=== PATIENT | female | born 1970 | race Hispanic/Latino ===

== ENCOUNTER 2021-04-15 17:28 | Emergency (ER) | payer MEDICAID ==
[2021-04-15 18:13] VITALS: BP 180/118
[2021-04-15] MEDS ORDERED: IPRATROPIUM 0.02% NEBU 2.5 ML IH ONE (18:31)
[2021-04-15] MEDS ORDERED: ACETAMINOPHEN W/CODEINE 300-30 MG TAB PO ONE (18:31)
[2021-04-15] MEDS ORDERED: dexAMETHasone 20 MG/5 ML VIAL IM ONE (18:31)
[2021-04-15] MEDS ORDERED: ALBUTEROL 2.5 MG/3 ML NEBU IH ONE (18:31)
--- NOTE | 2021-04-15 18:34 | Event Note ---
ED Screening Note ED Screening Note: Patient presents emergency room with complaints of hemorrhoids which are causing her some rectal pain Also presents for shortness of breath, wheezing, cough History of COPD and smokes a pack per day She has never been on home oxygen Oxygen saturation 86% on room air, patient placed on 3 L Charge nurse Mone notified that patient needs room [place] Patient has wheezing throughout and form air movement No respiratory distress or accessory muscle use No tripoding or stridor This initial assessment/diagnostic orders/clinical plan/treatment(s) is/are subject to change based on patients health status, clinical progression and re- assessment by fellow clinical providers in the ED. Further treatment and workup at subsequent clinical providers discretion. Patient/guardian urged not to elope from the ED as their condition may be serious if not clinically assessed and managed. Initial orders include: Labs, x-ray, meds Main ED for hypoxia with COPD
[2021-04-15] MEDS ORDERED: methylPREDNISolone Sod Succinate 125 MG/2 ML INJ IV ONE (18:45)
[2021-04-15] MEDS ORDERED: dexAMETHasone 4 MG/ML VIAL IV ONE (18:45)
--- NOTE | 2021-04-15 18:56 | XRay Report ---
XR chest routine 2V INDICATION / CLINICAL INFORMATION: sob, wheezing, cough. COMPARISON: None available. FINDINGS: SUPPORT DEVICES: None. HEART /PULMONARY VASCULATURE: Median sternotomy changes with cardiac valve prosthesis and mild cardio megaly. Pulmonary vasculature is not significantly congested. LUNGS / PLEURA: No focal airspace consolidation. No sizable pleural effusion. No pneumothorax. ADDITIONAL FINDINGS: No significant additional findings. IMPRESSION: No acute cardiopulmonary disease. Signer Name: Sunny Cain MD Signed: 04/15/2021 6:51 PM Workstation Name: [id number]
[2021-04-15] MEDS ORDERED: HYDROCORTISONE 25 MG RECTAL SUPP PR ONE (19:00)
[2021-04-15 19:54] LABS: Eosinophils % (Auto) 0.1 % (0.0-4.3); Hematocrit 42.1 % (30.3-42.9); Hemoglobin 13.3 gm/dl (10.1-14.3); Mean Corpuscular HGB Conc 32 % (30-34); Mean Corpuscular Volume 77 fl (79-97); Monocytes # (Auto) 0.6 K/mm3 (0.0-0.8); Monocytes % (Auto) 6.9 % (0.0-7.3); Platelet Count 206 K/mm3 (140-440); Red Blood Count 5.47 M/mm3 (3.65-5.03); Red Cell Distribution Width 17.2 % (13.2-15.2)
[2021-04-15 19:59] LABS: INR 0.79 (0.87-1.13)
[2021-04-15 20:02] LABS: Basophils % (Auto) 0.2 % (0.0-1.8); Lymphocytes # (Auto) 0.8 K/mm3 (1.2-5.4); Lymphocytes % (Auto) 9.5 % (13.4-35.0)
[2021-04-15 20:10] LABS: Albumin 4.2 g/dL (3.9-5); Calcium 8.8 mg/dL (8.4-10.2)
--- NOTE | 2021-04-15 21:20 | Emergency Department Report ---
HPI - General Chief Complaint: Rectal Pain Time Seen by Provider: 04/15/21 18:21 - HPI HPI: This is a 50-year-old female presents to the emergency department with the initial complaint of rectal pain and a history of hemorrhoids. Through triage the patient was found to have a room air oxygen saturation of 86%. She does have a history of COPD but is not oxygen dependent at home. She smokes 1.5 packs/day. The patient does admit to some recent shortness of breath, wheezing, coughing. She denies any fever, chest pain, lower extremity swelling, nausea, vomiting or diaphoresis. She is vaccinated for COVID-19. No recent travel or sick contacts at home. ED Past Medical Hx - Past Medical History Hx Heart Attack/AMI: Yes Hx COPD: Yes - Surgical History Hx Open Heart Surgery: Yes - Medications Home Medications: Home Medications Medication Instructions Recorded Confirmed Last Taken Type ALBUTEROL NEB's [Proventil 0.083% 2.5 mg IH TID PRN #1 box 04/15/21 Unknown Rx NEBS] Albuterol Mdi (or & Nicu Only) 2 puff IH QID PRN #8.5 gram 04/15/21 Unknown Rx [ProAir HFA Inhaler] predniSONE [Deltasone] 20 mg PO QDAY #5 tab 04/15/21 Unknown Rx ED Review of Systems ROS: Stated complaint: abdomianl pain Other details as noted in HPI Comment: All other systems reviewed and negative Constitutional: denies: chills, fever Eyes: denies: eye pain, vision change ENT: denies: ear pain, throat pain Respiratory: cough, shortness of breath, wheezing Cardiovascular: denies: chest pain, edema Gastrointestinal: other (rectal pain). denies: abdominal pain, vomiting Genitourinary: denies: dysuria, discharge Musculoskeletal: denies: back pain, arthralgia Skin: denies: rash, lesions Physical Exam - Physical Exam Vital Signs: Vital Signs 04/15/21 04/15/21 18:10 19:57 Temperature 98.5 F Pulse Rate 92 H Pulse Rate [ 100 H Bilateral] Respiratory 24 Rate Respiratory 18 Rate [Bilateral ] Blood Pressure 180/118 [Right] O2 Sat by Pulse 86 Oximetry Physical Exam: GENERAL: The patient is well-developed well-nourished. HENT: Normocephalic. Atraumatic. Patient has moist mucous membranes. EYES: Extraocular motions are intact. NECK: Supple. Trachea is midline. CHEST/LUNGS: Mild to moderate wheezing throughout the chest. Mild tachypnea but no accessory muscle use. HEART/CARDIOVASCULAR: Regular. There is no tachycardia. There is no murmur. ABDOMEN: Abdomen is soft, nontender. Patient has normal bowel sounds. SKIN: Skin is warm and dry. NEURO: The patient is awake, alert, and oriented. The patient is cooperative. Normal speech. MUSCULOSKELETAL: There is no tenderness or deformity. There is no limitation range of motion. RECTAL: Deferred ED Course Vital Signs 04/15/21 04/15/21 18:10 19:57 Temperature 98.5 F Pulse Rate 92 H Pulse Rate [ 100 H Bilateral] Respiratory 24 Rate Respiratory 18 Rate [Bilateral ] Blood Pressure 180/118 [Right] O2 Sat by Pulse 86 Oximetry ED Medical Decision Making - Lab Data Result diagrams: 04/15/21 19:07 04/15/21 19:07 Lab Results 04/15/21 04/15/21 04/15/21 Range/Units 19:07 19:07 19:07 WBC 8.7 (4.5-11.0) K/mm3 RBC 5.47 H (3.65-5.03) M/mm3 Hgb 13.3 (10.1-14.3) gm/dl Hct 42.1 (30.3-42.9) % MCV 77 L (79-97) fl MCH 24 L (28-32) pg MCHC 32 (30-34) % RDW 17.2 H (13.2-15.2) % Plt Count 206 (140-440) K/mm3 Lymph % (Auto) 9.5 L (13.4-35.0) % [place] % (Auto) 6.9 (0.0-7.3) % Eos % (Auto) 0.1 (0.0-4.3) % Baso % (Auto) 0.2 (0.0-1.8) % Lymph # (Auto) 0.8 L (1.2-5.4) K/mm3 [place] # (Auto) 0.6 (0.0-0.8) K/mm3 Eos # (Auto) 0.0 (0.0-0.4) K/mm3 Baso # (Auto) 0.0 (0.0-0.1) K/mm3 Seg Neutrophils % 83.3 H (40.0-70.0) % Seg Neutrophils # 7.3 (1.8-7.7) K/mm3 PT (12.2-14.9) Sec. INR (0.87-1.13) Sodium 129 L (137-145) mmol/L Potassium 4.2 (3.6-5.0) mmol/L Chloride 91.2 L (98-107) mmol/L Carbon Dioxide 26 (22-30) mmol/L Anion Gap 16 mmol/L BUN 13 (7-17) mg/dL Creatinine 1.1 (0.6-1.2) mg/dL Estimated GFR 53 ml/min BUN/Creatinine Ratio 12 % Glucose 142 H (65-100) mg/dL Calcium 8.8 (8.4-10.2) mg/dL Total Bilirubin 0.60 (0.1-1.2) mg/dL AST 17 (5-40) units/L ALT 10 (7-56) units/L Alkaline Phosphatase 95 (35-129) units/L Troponin T < 0.010 (0.00-0.029) ng/mL NT-Pro-B Natriuret Pep (0-450) pg/mL Total Protein 7.2 (6.3-8.2) g/dL Albumin 4.2 (3.9-5) g/dL Albumin/Globulin Ratio 1.4 % 04/15/21 04/15/21 Range/Units 19:07 19:07 WBC (4.5-11.0) K/mm3 RBC (3.65-5.03) M/mm3 Hgb (10.1-14.3) gm/dl Hct (30.3-42.9) % MCV (79-97) fl MCH (28-32) pg MCHC (30-34) % RDW (13.2-15.2) % Plt Count (140-440) K/mm3 Lymph % (Auto) (13.4-35.0) % [place] % (Auto) (0.0-7.3) % Eos % (Auto) (0.0-4.3) % Baso % (Auto) (0.0-1.8) % Lymph # (Auto) (1.2-5.4) K/mm3 [place] # (Auto) (0.0-0.8) K/mm3 Eos # (Auto) (0.0-0.4) K/mm3 Baso # (Auto) (0.0-0.1) K/mm3 Seg Neutrophils % (40.0-70.0) % Seg Neutrophils # (1.8-7.7) K/mm3 PT 11.9 L (12.2-14.9) Sec. INR 0.79 L (0.87-1.13) Sodium (137-145) mmol/L Potassium (3.6-5.0) mmol/L Chloride (98-107) mmol/L Carbon Dioxide (22-30) mmol/L Anion Gap mmol/L BUN (7-17) mg/dL Creatinine (0.6-1.2) mg/dL Estimated GFR ml/min BUN/Creatinine Ratio % Glucose (65-100) mg/dL Calcium (8.4-10.2) mg/dL Total Bilirubin (0.1-1.2) mg/dL AST (5-40) units/L ALT (7-56) units/L Alkaline Phosphatase (35-129) units/L Troponin T (0.00-0.029) ng/mL NT-Pro-B Natriuret Pep 936.5 H (0-450) pg/mL Total Protein (6.3-8.2) g/dL Albumin (3.9-5) g/dL Albumin/Globulin Ratio % - Radiology Data Radiology results: image reviewed interpreted by me: Chest x-ray does not show any acute process. There are no pleural effusions, obvious pneumonia and there is no pneumothorax. No widened mediastinum. - Medical Decision Making This patient presents to the emergency department originally with a complaint of rectal/hemorrhoid pain. However, upon triage, the patient was found to have a room air oxygen saturation of 86%. Patient does have a history of COPD but is not oxygen dependent at home. She continues to smoke about 1.5 packs/day. At this point the patient did admit that she has been having some recent shortness of breath, wheezing, coughing. She has been using her home albuterol nebulizer treatment without any relief. Chest x-ray does not show any pneumonia, pleural effusions, pneumothorax, widened mediastinum, or any other acute process. Labs have been mostly unremarkable including CBC, metabolic panel, negative troponin. The patient does have some hyponatremia with a sodium level of 129 and has an elevated proBNP of about 1000, but no evidence of volume overload. I explained to the patient that she will need to be admitted to the hospital for further evaluation and treatment as she is not oxygen dependent at home but is requiring oxygen to keep her oxygen saturation up in the 90s. However the patient is refusing admission at this time. I explained to the patient that leaving AGAINST MEDICAL ADVICE at this time could lead to increased shortness of breath, worsening hypoxia and subsequent respiratory distress, ME, CVA, coma or even . The patient is awake, alert, oriented, AAO x3, and has a normal decision-making capacity and despite understanding the risks has decided to leave AGAINST MEDICAL ADVICE. She understands that she can return to the emergency department if she changes her mind about admission or further evaluation, or with any acute distress. Critical Care Time: No Critical care attestation.: If time is entered above; I have spent that time in minutes in the direct care of this critically ill patient, excluding procedure time. ED Disposition Clinical Impression: Hypoxia, Rectal pain, Hyponatremia COPD (chronic obstructive pulmonary disease) Qualifiers: COPD type: unspecified COPD Qualified Code(s): J44.9 - Chronic obstructive pulmonary disease, unspecified Disposition: 07 LEFT AGAINST MEDICAL ADVICE Is pt being admited?: No Condition: Stable Instructions: Chronic Obstructive Pulmonary Disease (ED) Additional Instructions: Please return to the emergency department if you change your mind about further evaluation and treatment of your low oxygen saturation, suspected COPD exacerbation, and your rectal pain/hemorrhoids. Follow-up with a primary care physician in the next few days. Take all medications as previously prescribed. Try to stay away from foods that are high in salt and caffeinated products. Keep a blood pressure log. Prescriptions: predniSONE [Deltasone] 20 mg PO QDAY #5 tab Albuterol Mdi (or & Nicu Only) [ProAir HFA Inhaler] 2 puff IH QID PRN #8.5 gram PRN Reason: Shortness Of Breath ALBUTEROL NEB's [Proventil 0.083% NEBS] 2.5 mg IH TID PRN #1 box PRN Reason: Wheezing Referrals: PRIMARY CARE, [Primary Care Provider] - 2-3 Days Forms: AMA Form Time of Disposition: 22:27
== END 2021-04-15 21:33 | disposition left against medical advice (07) ==
LOC: ED 17:28
DX: R09.02 Hypoxemia (principal); J44.9 Chronic obstructive pulmonary disease, unspecified; K62.89 Other specified diseases of anus and rectum; E87.1 Hypo-osmolality and hyponatremia
CPT/HCPCS: 36415; 71046; 80053; 83880; 84484; 85025; 85610; 94644; 96374; 99284; J2930

== ENCOUNTER 2021-06-26 16:39 | Emergency (ER) | payer MEDICAID ==
[2021-06-26] MEDS ORDERED: IPRATROPIUM/ALBUTEROL SULFATE 3 ML AMPUL.NEB IH ONE (20:08)
[2021-06-26] MEDS ORDERED: methylPREDNISolone Sod Succinate 125 MG/2 ML INJ IM ONE (20:08)
[2021-06-26] MEDS ORDERED: cloNIDine 0.1 MG TAB PO ONE (20:09)
--- NOTE | 2021-06-26 20:35 | XRay Report ---
Chest 2 views INDICATION: Dyspnea IMPRESSION: Cardiomegaly with small left pleural effusion. Evidence of cardiac valvuloplasty. Mild in creased pulmonary vascularity suggestive of underlying cardiac congestion. Signer Name: Lokesh Baron MD Signed: 06/26/2021 8:30 PM Workstation Name: [id number]
--- NOTE | 2021-06-26 20:59 | Event Note ---
ED Screening Note Date of service: 06/26/21 Time: 20:58 ED Screening Note: Few day history of worsening shortness of breath despite use of inhalers. She states that it feels like she has a tight band around her chest and has been unable to wear her bra. She states that over the last 2 days she also felt like her throat was swollen and closing up. This initial assessment/diagnostic orders/clinical plan/treatment(s) is/are subject to change based on patients health status, clinical progression and re- assessment by fellow clinical providers in the ED. Further treatment and workup at subsequent clinical providers discretion. Patient/guardian urged not to elope from the ED as their condition may be serious if not clinically assessed and managed. Initial orders include:
[2021-06-26 21:32] LABS: Hematocrit 38.4 % (30.3-42.9); Hemoglobin 12.7 gm/dl (10.1-14.3); Mean Corpuscular HGB Conc 33 % (30-34); Mean Corpuscular Volume 77 fl (79-97); Platelet Count 193 K/mm3 (140-440); Red Blood Count 5.02 M/mm3 (3.65-5.03); Red Cell Distribution Width 17.8 % (13.2-15.2)
[2021-06-26 21:55] LABS: Alanine Aminotransferase 16 units/L (7-56); Albumin 3.8 g/dL (3.9-5); BUN/Creatinine Ratio 18; Blood Urea Nitrogen 16 mg/dL (7-17); Hemolysis Index 17
[2021-06-26] MEDS ORDERED: FUROSEMIDE 40 MG/4 ML INJ IV ONE (22:34)
--- NOTE | 2021-06-26 22:40 | Emergency Department Report ---
ED Shortness of Breath HPI - General Chief Complaint: Dyspnea/Respdistress Stated Complaint: DIFFICULTY BREATHING Time Seen by Provider: 06/26/21 19:45 Source: patient Mode of arrival: Ambulatory Limitations: No Limitations - History of Present Illness Initial Comments: Patient is 50 years old female with history of COPD, hypertension questionable history of CHF. Patient presented to the ER complaining of shortness of breath difficulty breathing for the last few days. Patient described orthopnea and paroxysmal nocturnal dyspnea. She denies any chest pain. She also denied any fever or chills recently. Patient stated that she is compliant with her medication. Patient found to have a blood pressure of 199/136. MD Complaint: shortness of breath - Related Data Previous Rx's Medication Instructions Recorded Last Taken Type ALBUTEROL NEB's [Proventil 0.083% 2.5 mg IH TID PRN #1 box 04/15/21 Unknown Rx NEBS] Albuterol Mdi (or & Nicu Only) 2 puff IH QID PRN #8.5 gram 04/15/21 Unknown Rx [ProAir HFA Inhaler] predniSONE [Deltasone] 20 mg PO QDAY #5 tab 04/15/21 Unknown Rx Allergies Allergy/AdvReac Type Severity Reaction Status Date / Time No Known Allergies Allergy Unverified 04/15/21 18:06 ED Review of Systems ROS: Stated complaint: DIFFICULTY BREATHING Other details as noted in HPI Comment: All other systems reviewed and negative Constitutional: denies: chills, fever Respiratory: orthopnea, shortness of breath, SOB with exertion, SOB at rest. denies: cough Cardiovascular: dyspnea on exertion, orthopnea, paroxysmal nocturnal dyspnea. denies: chest pain, palpitations Gastrointestinal: denies: abdominal pain, nausea, diarrhea, constipation, hematemesis Musculoskeletal: denies: back pain Neurological: denies: headache, weakness, numbness, paresthesias, confusion, abnormal gait ED Past Medical Hx - Past Medical History Previous Medical History?: Yes Hx Hypertension: Yes Hx Heart Attack/AMI: Yes Hx Psychiatric Treatment: Yes Hx COPD: Yes - Surgical History Hx Open Heart Surgery: Yes - Medications Home Medications: Home Medications Medication Instructions Recorded Confirmed Last Taken Type ALBUTEROL NEB's [Proventil 0.083% 2.5 mg IH TID PRN #1 box 04/15/21 Unknown Rx NEBS] Albuterol Mdi (or & Nicu Only) 2 puff IH QID PRN #8.5 gram 04/15/21 Unknown Rx [ProAir HFA Inhaler] predniSONE [Deltasone] 20 mg PO QDAY #5 tab 04/15/21 Unknown Rx ED Physical Exam - General Limitations: No Limitations General appearance: alert, in distress - Head Head exam: Present: atraumatic, normocephalic, normal inspection - Eye Eye exam: Present: normal appearance - ENT ENT exam: Present: normal exam, normal orophraynx, mucous membranes moist - Neck Neck exam: Present: normal inspection, full ROM. Absent: tenderness, meningismus - Respiratory Respiratory exam: Present: respiratory distress, wheezes, rales, decreased breath sounds - Cardiovascular Cardiovascular Exam: Present: regular rate, normal rhythm, normal heart sounds - GI/Abdominal GI/Abdominal exam: Present: soft, normal bowel sounds. Absent: distended, tenderness, guarding, rebound, rigid, organomegaly, mass, bruit, pulsatile mass, hernia - Extremities Exam Extremities exam: Present: normal inspection, normal capillary refill. Absent: tenderness, calf tenderness - Back Exam Back exam: Present: normal inspection, full ROM. Absent: CVA tenderness (R), CVA tenderness (L) - Neurological Exam Neurological exam: Present: alert, oriented X3, CN II-XII intact, reflexes normal. Absent: motor sensory deficit - Psychiatric Psychiatric exam: Present: normal mood - Skin Skin exam: Present: warm, intact, normal color ED Course Vital Signs 06/26/21 06/26/21 17:30 22:40 Temperature 98.6 F Pulse Rate 104 H 107 H Respiratory 24 18 Rate Blood Pressure 199/136 Blood Pressure 170/100 [Left] O2 Sat by Pulse 97 95 Oximetry ED Medical Decision Making - Lab Data Result diagrams: 06/26/21 21:02 06/26/21 21:02 - Radiology Data Radiology results: report reviewed - Medical Decision Making Patient is 50 years old female with history of COPD, hypertension questionable history of CHF. Patient presented to the ER complaining of shortness of breath difficulty breathing for the last few days. Patient described orthopnea and paroxysmal nocturnal dyspnea. She denies any chest pain. She also denied any fever or chills recently. Patient stated that she is compliant with her medication. Patient found to have a blood pressure of 199/136. Patient received albuterol, Solu-Medrol. Patient also received Lasix. Patient stated that she is feeling much better. Blood pressure improved significantly with Lasix and clonidine. Patient advised to be compliant with her medication. Patient given prescription for prednisone and albuterol and advised to follow- up with her primary doctor in the next 2 to 3 days and to return to the ER she develop any new symptoms. Critical care attestation.: If time is entered above; I have spent that time in minutes in the direct care of this critically ill patient, excluding procedure time. ED Disposition Clinical Impression: COPD exacerbation, CHF exacerbation, Malignant hypertension Disposition: HOME / SELF CARE / HOMELESS Is pt being admited?: No Condition: Stable Instructions: Chronic Obstructive Pulmonary Disease (ED), Chronic Obstructive Pulmonary Disease Exacerbation, [id number], Hypertension (ED), Heart Failure Exacerbation Referrals: LORI MORAN MD [Primary Care Provider] - 3-5 Days
[2021-06-26 22:41] VITALS: BP 170/100
== END 2021-06-27 00:34 | disposition home or self-care (01) ==
LOC: ED 16:39
DX: J44.1 Chronic obstructive pulmonary disease with (acute) exacerbation (principal); I50.9 Heart failure, unspecified; I10 Essential (primary) hypertension
CPT/HCPCS: 36415; 71046; 80053; 83880; 84484; 85027; 94640; 96372; 96374; 99284; J1940; J2930

== ENCOUNTER 2021-07-03 03:37 | Inpatient (IN) | payer MEDICAID ==
[2021-07-03] MEDS ORDERED: ALBUTEROL 2.5 MG/3 ML NEBU IH ONE (03:47)
[2021-07-03] MEDS ORDERED: IPRATROPIUM 0.02% NEBU 2.5 ML IH ONE (03:47)
[2021-07-03] MEDS ORDERED: FUROSEMIDE 40 MG/4 ML INJ IV ONE (03:48)
[2021-07-03 03:53] LABS: ABG Base Excess 3.5 mmol/L (-2.0-3.0); ABG HCO3 29.4 mmol/L (20.0-26.0); ABG Methemoglobin 0.5 % (0.0-1.5); ABG Oxygen Saturation 98.8 % (95.0-99.0); ABG PCO2 49.7 mm Hg; ABG PH 7.389 pH Units (7.350-7.450); ABG PO2 150.5 mm Hg (80.0-90.0)
[2021-07-03] MEDS: NITROGLYCERIN DRIP 50 MG/250 ML BOTTLE IV SCH ×4 (04:05→05:42)
[2021-07-03 04:10] LABS: Basophils % (Auto) 0.4 % (0.0-1.8); Hemoglobin 12.2 gm/dl (10.1-14.3); Lymphocytes # (Auto) 0.9 K/mm3 (1.2-5.4); Lymphocytes % (Auto) 6.7 % (13.4-35.0); Mean Corpuscular HGB Conc 31 % (30-34); Mean Corpuscular Volume 77 fl (79-97); Monocytes # (Auto) 0.8 K/mm3 (0.0-0.8); Monocytes % (Auto) 5.8 % (0.0-7.3); Platelet Count 197 K/mm3 (140-440); Red Blood Count 5.09 M/mm3 (3.65-5.03); Red Cell Distribution Width 17.4 % (13.2-15.2)
[2021-07-03 04:19] LABS: INR 0.81 (0.87-1.13)
[2021-07-03 04:25] LABS: Creatine Kinase MB 5.4 ng/mL (0.0-4.0)
[2021-07-03 04:26] LABS: Albumin 3.6 g/dL (3.9-5); Calcium 8.6 mg/dL (8.4-10.2)
[2021-07-03] MEDS ORDERED: ALBUTEROL 2.5 MG/3 ML NEBU IH PRN (05:45)
[2021-07-03] MEDS ORDERED: MORPHINE 2 MG/1 ML INJ IV PRN (05:45)
[2021-07-03] MEDS ORDERED: ONDANSETRON 4 MG/2 ML INJ IV PRN (05:45)
[2021-07-03] MEDS ORDERED: HYDROmorphone 1 MG/1 ML INJ IV PRN (05:45)
[2021-07-03] MEDS ORDERED: ACETAMINOPHEN 325 MG TAB PO PRN (05:45)
--- NOTE | 2021-07-03 05:48 | Emergency Department Report ---
ED Shortness of Breath HPI - General Chief Complaint: Dyspnea/Respdistress Stated Complaint: MARLEY Time Seen by Provider: 07/03/21 03:48 Source: EMS Mode of arrival: Stretcher Limitations: No Limitations - History of Present Illness Initial Comments: 50 years old with history of CHF and COPD and psych history, brought in by EMS for SOB , was found to be SOB and o2 sat of 80s , didn;t take her BP meds today because she couldn;t find it , EMS started her on CPAP and give her steriods Complaint: shortness of breath -: days(s) Consistency: intermittent Improves With: nothing Known History Of: COPD, congestive heart failure Associated Symptoms: denies other symptoms Treatments Prior to Arrival: none - Related Data Previous Rx's Medication Instructions Recorded Last Taken Type ALBUTEROL NEB's [Proventil 0.083% 2.5 mg IH TID PRN #1 box 04/15/21 Unknown Rx NEBS] Albuterol Mdi (or & Nicu Only) 2 puff IH QID PRN #8.5 gram 04/15/21 Unknown Rx [ProAir HFA Inhaler] predniSONE [Deltasone] 20 mg PO QDAY #5 tab 04/15/21 Unknown Rx Albuterol Mdi (or & Nicu Only) 2 puff IH QID PRN #1 inhalation 06/27/21 Unknown Rx [ProAir HFA Inhaler] Furosemide [Lasix] 20 mg PO QDAY #7 tablet 06/27/21 Unknown Rx Prednisone [predniSONE 10 mg 10 mg PO .TAPER #1 tab.ds.pk 06/27/21 Unknown Rx (6-Day Pack, 21 Tabs)] Allergies Allergy/AdvReac Type Severity Reaction Status Date / Time No Known Allergies Allergy Unverified 04/15/21 18:06 ED Review of Systems ROS: Stated complaint: MARLEY Other details as noted in HPI Comment: Unobtainable due to pts medical conditions ED Past Medical Hx - Past Medical History Hx Hypertension: Yes Hx Heart Attack/AMI: Yes Hx Psychiatric Treatment: Yes Hx COPD: Yes - Surgical History Hx Open Heart Surgery: Yes - Medications Home Medications: Home Medications Medication Instructions Recorded Confirmed Last Taken Type ALBUTEROL NEB's [Proventil 0.083% 2.5 mg IH TID PRN #1 box 04/15/21 Unknown Rx NEBS] Albuterol Mdi (or & Nicu Only) 2 puff IH QID PRN #8.5 gram 04/15/21 Unknown Rx [ProAir HFA Inhaler] predniSONE [Deltasone] 20 mg PO QDAY #5 tab 04/15/21 Unknown Rx Albuterol Mdi (or & Nicu Only) 2 puff IH QID PRN #1 inhalation 06/27/21 Unknown Rx [ProAir HFA Inhaler] Furosemide [Lasix] 20 mg PO QDAY #7 tablet 06/27/21 Unknown Rx Prednisone [predniSONE 10 mg 10 mg PO .TAPER #1 tab.ds.pk 06/27/21 Unknown Rx (6-Day Pack, 21 Tabs)] ED Physical Exam - General Limitations: No Limitations General appearance: alert, in distress - Head Head exam: Present: atraumatic, normocephalic - Eye Eye exam: Present: normal appearance - ENT ENT exam: Present: mucous membranes moist - Neck Neck exam: Present: normal inspection - Respiratory Respiratory exam: Present: respiratory distress, rales, rhonchi, decreased breath sounds - Cardiovascular Cardiovascular Exam: Present: normal rhythm, tachycardia. Absent: systolic murmur, diastolic murmur, rubs, gallop - GI/Abdominal GI/Abdominal exam: Present: soft, normal bowel sounds - Extremities Exam Extremities exam: Present: normal inspection - Back Exam Back exam: Present: normal inspection - Neurological Exam Neurological exam: Present: alert, oriented X3 - Psychiatric Psychiatric exam: Present: normal affect, normal mood - Skin Skin exam: Present: warm, dry, intact, normal color. Absent: rash ED Course Vital Signs 07/03/21 07/03/21 07/03/21 03:49 03:55 03:59 Temperature 98.7 F Pulse Rate 126 H 125 H Pulse Rate [ 116 H Bilateral Throughout] Respiratory 20 21 Rate Respiratory 21 Rate [Bilateral Throughout] Blood Pressure 181/128 Blood Pressure 181/128 [Right] O2 Sat by Pulse 100 99 Oximetry 07/03/21 07/03/21 04:43 05:42 Temperature Pulse Rate 111 H 113 H Pulse Rate [ Bilateral Throughout] Respiratory 20 18 Rate Respiratory Rate [Bilateral Throughout] Blood Pressure Blood Pressure 151/101 159/99 [Right] O2 Sat by Pulse 95 Oximetry ED Medical Decision Making - Lab Data Result diagrams: 07/03/21 03:54 07/03/21 03:54 - EKG Data -: EKG Interpreted by Me - Radiology Data Radiology results: image reviewed - Medical Decision Making steriods and rt and CPAP given prior to arrival here was started on nitro and bipap and lasix, dramatic imrpovement feels better off bipap and nitro Critical care attestation.: If time is entered above; I have spent that time in minutes in the direct care of this critically ill patient, excluding procedure time. ED Disposition Clinical Impression: COPD exacerbation, CHF exacerbation, SOB (shortness of breath), Hypertensive em ergency Disposition: ADMITTED INPATIENT Is pt being admited?: Yes Does the pt Need Aspirin: No Condition: Fair Instructions: Chronic Obstructive Pulmonary Disease (ED), Hypertension (ED)
--- NOTE | 2021-07-03 05:53 | History and Physical Report ---
History of Present Illness Date of examination: 07/03/21 Date of admission: 07/03/21 Chief complaint: Dyspnea Respiratory distress History of present illness: 50 years old female with history of COPD, hypertension questionable history of CHF was brought to the emergency room because of progressive shortness of breath. Patient O2 sat in the 80s and patient is hypertensive 181/128. Patient did not take the blood pressure medication because he could not find it. subsequently patient is brought to the emergency room and put on BiPAP as well as nitro drip for blood pressure 181/128. Now blood pressure is improved 151/99 and patient feels better. Still going to admit the patient to the medical floor for acute COPD exacerbation and CHF exacerbation. Past History Past Medical History: COPD, heart failure, hypertension Medications and Allergies Allergies Allergy/AdvReac Type Severity Reaction Status Date / Time No Known Allergies Allergy Unverified 04/15/21 18:06 Home Medications Medication Instructions Recorded Confirmed Last Taken Type ALBUTEROL NEB's [Proventil 0.083% 2.5 mg IH TID PRN #1 box 04/15/21 Unknown Rx NEBS] Albuterol Mdi (or & Nicu Only) 2 puff IH QID PRN #8.5 gram 04/15/21 Unknown Rx [ProAir HFA Inhaler] predniSONE [Deltasone] 20 mg PO QDAY #5 tab 04/15/21 Unknown Rx Albuterol Mdi (or & Nicu Only) 2 puff IH QID PRN #1 inhalation 06/27/21 Unknown Rx [ProAir HFA Inhaler] Furosemide [Lasix] 20 mg PO QDAY #7 tablet 06/27/21 Unknown Rx Prednisone [predniSONE 10 mg 10 mg PO .TAPER #1 tab.ds.pk 06/27/21 Unknown Rx (6-Day Pack, 21 Tabs)] Active Meds: Active Medications Nitroglycerin/Dextrose (Tridil Drip 50mg/250ml) 50 mg in 250 mls @ 3 mls/hr IV TITR JUAQUIN; Protocol Last Admin: 07/03/21 05:42 Dose: 10 mcg/min, 3 mls/hr Review of Systems Cardiovascular: orthopnea, edema, shortness of breath, dyspnea on exertion, paroxysmal nocturnal dyspnea Respiratory: shortness of breath, dyspnea on exertion Exam - Constitutional Vitals: Temp Pulse Resp BP Pulse Ox 98.7 F 113 H 18 159/99 95 07/03/21 03:49 07/03/21 05:42 07/03/21 05:42 07/03/21 05:42 07/03/21 05:42 General appearance: Present: no acute distress, well-nourished - EENT Eyes: Present: PERRL ENT: hearing intact, clear oral mucosa - Neck Neck: Present: supple, normal ROM - Respiratory Respiratory effort: normal Respiratory: bilateral: diminished - Cardiovascular Heart Sounds: Present: S1 & S2. Absent: rub, click - Extremities Extremities: pulses symmetrical, No edema Peripheral Pulses: within normal limits - Abdominal General gastrointestinal: Present: soft, non-tender, non-distended, normal bowel sounds Female genitourinary: Present: normal - Integumentary Integumentary: Present: clear, warm, dry - Musculoskeletal Musculoskeletal: gait normal, strength equal bilaterally - Psychiatric Psychiatric: appropriate mood/affect, intact judgment & insight - Neurologic Neurologic: CNII-XII intact, moves all extremities HEART Score - HEART Score Troponin: Troponin T < 0.010 ng/mL (0.00-0.029) 07/03/21 03:54 Results - Labs CBC & Chem 7: 07/03/21 03:54 07/03/21 03:54 Labs: Laboratory Last Values WBC 14.1 K/mm3 (4.5-11.0) H 07/03/21 03:54 RBC 5.09 M/mm3 (3.65-5.03) H 07/03/21 03:54 Hgb 12.2 gm/dl (10.1-14.3) 07/03/21 03:54 Hct 39.0 % (30.3-42.9) 07/03/21 03:54 MCV 77 fl (79-97) L 07/03/21 03:54 MCH 24 pg (28-32) L 07/03/21 03:54 MCHC 31 % (30-34) 07/03/21 03:54 RDW 17.4 % (13.2-15.2) H 07/03/21 03:54 Plt Count 197 K/mm3 (140-440) 07/03/21 03:54 Lymph % (Auto) 6.7 % (13.4-35.0) L 07/03/21 03:54 Major % (Auto) 5.8 % (0.0-7.3) 07/03/21 03:54 Eos % (Auto) 0.0 % (0.0-4.3) 07/03/21 03:54 Baso % (Auto) 0.4 % (0.0-1.8) 07/03/21 03:54 Lymph # (Auto) 0.9 K/mm3 (1.2-5.4) L 07/03/21 03:54 Major # (Auto) 0.8 K/mm3 (0.0-0.8) 07/03/21 03:54 Eos # (Auto) 0.0 K/mm3 (0.0-0.4) 07/03/21 03:54 Baso # (Auto) 0.0 K/mm3 (0.0-0.1) 07/03/21 03:54 Seg Neutrophils % 87.1 % (40.0-70.0) H 07/03/21 03:54 Seg Neutrophils # 12.3 K/mm3 (1.8-7.7) H 07/03/21 03:54 PT 12.0 Sec. (12.2-14.9) L 07/03/21 03:54 INR 0.81 (0.87-1.13) L 07/03/21 03:54 ABG pH 7.389 pH Units (7.350-7.450) 07/03/21 03:42 ABG pCO2 49.7 mm Hg 07/03/21 03:42 ABG pO2 150.5 mm Hg (80.0-90.0) H 07/03/21 03:42 ABG HCO3 29.4 mmol/L (20.0-26.0) H 07/03/21 03:42 ABG O2 Saturation 98.8 % (95.0-99.0) 07/03/21 03:42 ABG O2 Content 17.5 (0.0-44) 07/03/21 03:42 ABG Base Excess 3.5 mmol/L (-2.0-3.0) H 07/03/21 03:42 ABG Hemoglobin 12.8 gm/dl (12.0-16.0) 07/03/21 03:42 ABG Carboxyhemoglobin 3.0 % (0.0-5.0) 07/03/21 03:42 ABG Methemoglobin 0.5 % (0.0-1.5) 07/03/21 03:42 Oxyhemoglobin 95.3 % (95.0-99.0) 07/03/21 03:42 FiO2 35 % 07/03/21 03:42 Sodium 138 mmol/L (137-145) 07/03/21 03:54 Potassium 4.9 mmol/L (3.6-5.0) 07/03/21 03:54 Chloride 99.5 mmol/L (98-107) 07/03/21 03:54 Carbon Dioxide 31 mmol/L (22-30) H 07/03/21 03:54 Anion Gap 12 mmol/L 07/03/21 03:54 BUN 21 mg/dL (7-17) H 07/03/21 03:54 Creatinine 1.2 mg/dL (0.6-1.2) 07/03/21 03:54 Estimated GFR 48 ml/min 07/03/21 03:54 BUN/Creatinine Ratio 18 % 07/03/21 03:54 Glucose 145 mg/dL (65-100) H 07/03/21 03:54 Lactic Acid 1.60 mmol/L (0.7-2.0) 07/03/21 03:54 Calcium 8.6 mg/dL (8.4-10.2) 07/03/21 03:54 Magnesium 1.90 mg/dL (1.7-2.3) 07/03/21 03:54 Total Bilirubin 0.50 mg/dL (0.1-1.2) 07/03/21 03:54 AST 14 units/L (5-40) 07/03/21 03:54 ALT 16 units/L (7-56) 07/03/21 03:54 Alkaline Phosphatase 83 units/L (35-129) 07/03/21 03:54 Total Creatine Kinase 68 units/L (30-135) 07/03/21 03:54 CK-MB (CK-2) 5.4 ng/mL (0.0-4.0) H 07/03/21 03:54 CK-MB (CK-2) Rel Index 7.9 (0-4) H 07/03/21 03:54 Troponin T < 0.010 ng/mL (0.00-0.029) 07/03/21 03:54 Total Protein 6.8 g/dL (6.3-8.2) 07/03/21 03:54 Albumin 3.6 g/dL (3.9-5) L 07/03/21 03:54 Albumin/Globulin Ratio 1.1 % 07/03/21 03:54 Lipase 25 units/L (13-60) 07/03/21 03:54 - Imaging and Cardiology Chest x-ray: pending Assessment and Plan VTE prophylaxis?: Chemical Plan of care discussed with patient/family: Yes - Patient Problems (1) Acute exacerbation of chronic obstructive pulmonary disease (COPD) Status: Acute Plan to address problem: Admit the patient to the medical floor. Oxygen via nasal cannula 3 L/min. DuoNeb by nebulizer every 4 hours. Albuterol via nebulizer every 4 hours as needed. Solu-Medrol 40 mg IV every 12 hours. Zithromax to 50 mg p.o. daily. Consult pulmonary if needed (2) CHF exacerbation Status: Acute Plan to address problem: Fluid restriction. Maintain input output. Daily weight. Lasix 40 mg IV every 12 hours. Echocardiogram. Consult cardiology if needed (3) Hypertensive emergency Status: Acute Plan to address problem: Patient was on nitro drip. We put the patient on hydralazine 10 mg IV every 6 hours as needed. We continue the home medication (4) Tobacco abuse Status: Acute Plan to address problem: Patient counseled regarding quitting smoking. We will put the patient on nicotine patch if needed (5) Malignant hypertension Status: Acute Plan to address problem: Patient was on nitro drip. We put the patient on hydralazine 10 mg IV every 6 hours as needed. We continue the home medication (6) SOB (shortness of breath) Status: Acute Plan to address problem: Oxygen via nasal cannula 3 L/min. DuoNeb by nebulizer every 4 hours. Albuterol via nebulizer every 4 hours as needed. Solu-Medrol 40 mg IV every 12 hours. Zithromax to 50 mg p.o. daily. Consult pulmonary if needed (7) DVT prophylaxis Status: Acute Plan to address problem: Heparin 5000 units subcu every 12 hrs for DVT prophylaxis. Pepcid 20 mg p.o. twice daily for GI prophylaxis. Patient is a full code
--- NOTE | 2021-07-03 05:59 | XRay Report ---
CHEST 1 VIEW 07/03/2021 5:20 AM INDICATION / CLINICAL INFORMATION: Dyspnea. COMPARISON: 06/26/2021. FINDINGS: SUPPORT DEVICES: None. HEART / MEDIASTINUM: Stable. LUNGS / PLEURA: No significant pulmonary or pleural abnormality. Mild pleural fluid versus thickening again seen left base. No new infiltrate. ADDITIONAL FINDINGS: No significant additional findings. IMPRESSION: Persistent pleural fluid versus thickening left base. Signer Name: Devin Lundy MD Signed: 07/03/2021 5:55 AM Workstation Name: [id number]
[2021-07-03] MEDS ORDERED: FUROSEMIDE 40 MG/4 ML INJ IV SCH (06:00)
[2021-07-03 06:04] LABS: Bacteria,Urine 1+ /HPF (Negative); Bilirubin,Urine NEG (Negative); Blood,Urine NEG (Negative); Color,Urine Colorless (Yellow); RBC,Urine < 1.0 /HPF (0.0-6.0); Urobilinogen,Urine < 2.0 mg/dL (<2.0); WBC,Urine < 1.0 /HPF (0.0-6.0)
[2021-07-03 06:11] LABS: Amphetamine Screen,Urine Negative; Benzodiazepines Screen,Urine Negative; Cannabinoid Screen,Urine Negative; Cocaine Screen,Urine Negative; Methadone Screen,Urine Negative; Opiate Screen,Urine Negative
--- NOTE | 2021-07-03 08:58 | Progress Note ---
Assessment and Plan Assessment and plan: History of present illness: 50 years old female with history of COPD, hypertension questionable history of CHF was brought to the emergency room because of progressive shortness of breath. Patient O2 sat in the 80s and patient is hypertensive 181/128. Patient did not take the blood pressure medication because he could not find it. subsequently patient is brought to the emergency room and put on BiPAP as well as nitro drip for blood pressure 181/128. Now blood pressure is improved 151/99 and patient feels better. Still going to admit the patient to the medical floor for acute COPD exacerbation and CHF exacerbation. Hospital course 07/03 Assessment and plan #Acute hypoxic respiratory failure #Acute exacerbation of COPD #Congestive heart failure exacerbation #Hypertensive emergency # Nicotine Abuse. - behavioral health counseling administered which included education on benefits of smoking cessation as well as options for quitting. +15 min. #Malignant hypertension #Advance care planning Disease education conducted, care plan discussed, diagnoses discussed, prognosis discussed, patient is full code, patient acknowledges understanding and agree with care plan, +30 minutes. Hospitalist Physical - Physical exam Narrative exam: Physical Exam: VITAL SIGNS: Reviewed. GENERAL: The patient appears normally developed, Vital signs as documented. HEAD: No signs of head trauma. EYES: Pupils are equal. Extraocular motions intact. EARS: Hearing grossly intact. MOUTH: Oropharynx is normal. NECK: No adenopathy, no JVD. CHEST: Chest with clear breath sounds bilaterally. No wheezes, rales, or rhonchi. CARDIAC: Regular rate and rhythm. S1 and S2, without murmurs, gallops, or rubs. VASCULAR: No Edema. Peripheral pulses normal and equal in all extremities. ABDOMEN: Soft, non tender and non distended. No rebound or guarding, and no masses palpated. Bowel Sounds normal. MUSCULOSKELETAL: Good range of motion of all major joints. Extremities without clubbing, cyanosis or edema. NEUROLOGIC EXAM: Alert and oriented x 4. no focal sensory or strength deficits. PSYCHIATRIC: Mood normal. SKIN: detail exam as documented in skin assessment - Constitutional Vitals: Temp Pulse Resp BP Pulse Ox 98.7 F 113 H 18 159/99 95 07/03/21 03:49 07/03/21 05:42 07/03/21 05:42 07/03/21 05:42 07/03/21 05:42 General appearance: Present: no acute distress, well-nourished HEART Score - HEART Score Troponin: Troponin T < 0.010 ng/mL (0.00-0.029) 07/03/21 03:54 Results - Labs CBC & Chem 7: 07/03/21 03:54 07/03/21 03:54 Labs: Laboratory Last Values WBC 14.1 K/mm3 (4.5-11.0) H 07/03/21 03:54 RBC 5.09 M/mm3 (3.65-5.03) H 07/03/21 03:54 Hgb 12.2 gm/dl (10.1-14.3) 07/03/21 03:54 Hct 39.0 % (30.3-42.9) 07/03/21 03:54 MCV 77 fl (79-97) L 07/03/21 03:54 MCH 24 pg (28-32) L 07/03/21 03:54 MCHC 31 % (30-34) 07/03/21 03:54 RDW 17.4 % (13.2-15.2) H 07/03/21 03:54 Plt Count 197 K/mm3 (140-440) 07/03/21 03:54 Lymph % (Auto) 6.7 % (13.4-35.0) L 07/03/21 03:54 [place] % (Auto) 5.8 % (0.0-7.3) 07/03/21 03:54 Eos % (Auto) 0.0 % (0.0-4.3) 07/03/21 03:54 Baso % (Auto) 0.4 % (0.0-1.8) 07/03/21 03:54 Lymph # (Auto) 0.9 K/mm3 (1.2-5.4) L 07/03/21 03:54 [place] # (Auto) 0.8 K/mm3 (0.0-0.8) 07/03/21 03:54 Eos # (Auto) 0.0 K/mm3 (0.0-0.4) 07/03/21 03:54 Baso # (Auto) 0.0 K/mm3 (0.0-0.1) 07/03/21 03:54 Seg Neutrophils % 87.1 % (40.0-70.0) H 07/03/21 03:54 Seg Neutrophils # 12.3 K/mm3 (1.8-7.7) H 07/03/21 03:54 PT 12.0 Sec. (12.2-14.9) L 07/03/21 03:54 INR 0.81 (0.87-1.13) L 07/03/21 03:54 ABG pH 7.389 pH Units (7.350-7.450) 07/03/21 03:42 ABG pCO2 49.7 mm Hg 07/03/21 03:42 ABG pO2 150.5 mm Hg (80.0-90.0) H 07/03/21 03:42 ABG HCO3 29.4 mmol/L (20.0-26.0) H 07/03/21 03:42 ABG O2 Saturation 98.8 % (95.0-99.0) 07/03/21 03:42 ABG O2 Content 17.5 (0.0-44) 07/03/21 03:42 ABG Base Excess 3.5 mmol/L (-2.0-3.0) H 07/03/21 03:42 ABG Hemoglobin 12.8 gm/dl (12.0-16.0) 07/03/21 03:42 ABG Carboxyhemoglobin 3.0 % (0.0-5.0) 07/03/21 03:42 ABG Methemoglobin 0.5 % (0.0-1.5) 07/03/21 03:42 Oxyhemoglobin 95.3 % (95.0-99.0) 07/03/21 03:42 FiO2 35 % 07/03/21 03:42 Sodium 138 mmol/L (137-145) 07/03/21 03:54 Potassium 4.9 mmol/L (3.6-5.0) 07/03/21 03:54 Chloride 99.5 mmol/L (98-107) 07/03/21 03:54 Carbon Dioxide 31 mmol/L (22-30) H 07/03/21 03:54 Anion Gap 12 mmol/L 07/03/21 03:54 BUN 21 mg/dL (7-17) H 07/03/21 03:54 Creatinine 1.2 mg/dL (0.6-1.2) 07/03/21 03:54 Estimated GFR 48 ml/min 03/14/22 03:54 BUN/Creatinine Ratio 18 % 07/03/21 03:54 Glucose 145 mg/dL (65-100) H 07/03/21 03:54 Lactic Acid 1.60 mmol/L (0.7-2.0) 07/03/21 03:54 Calcium 8.6 mg/dL (8.4-10.2) 07/03/21 03:54 Magnesium 1.90 mg/dL (1.7-2.3) 07/03/21 03:54 Total Bilirubin 0.50 mg/dL (0.1-1.2) 07/03/21 03:54 AST 14 units/L (5-40) 07/03/21 03:54 ALT 16 units/L (7-56) 07/03/21 03:54 Alkaline Phosphatase 83 units/L (35-129) 07/03/21 03:54 Total Creatine Kinase 68 units/L (30-135) 07/03/21 03:54 CK-MB (CK-2) 5.4 ng/mL (0.0-4.0) H 07/03/21 03:54 CK-MB (CK-2) Rel Index 7.9 (0-4) H 07/03/21 03:54 Troponin T < 0.010 ng/mL (0.00-0.029) 07/03/21 03:54 NT-Pro-B Natriuret Pep 4614 pg/mL (0-450) H 07/03/21 03:54 Total Protein 6.8 g/dL (6.3-8.2) 07/03/21 03:54 Albumin 3.6 g/dL (3.9-5) L 07/03/21 03:54 Albumin/Globulin Ratio 1.1 % 07/03/21 03:54 Lipase 25 units/L (13-60) 07/03/21 03:54 Urine Color Colorless (Yellow) 07/03/21 Unknown Urine Turbidity Clear (Clear) 07/03/21 Unknown Urine pH 7.0 (5.0-7.0) 07/03/21 Unknown Ur Specific [place] 1.004 (1.003-1.030) 07/03/21 Unknown Urine Protein 30 mg/dl mg/dL (Negative) 07/03/21 Unknown Urine Glucose (UA) Neg mg/dL (Negative) 07/03/21 Unknown Urine Ketones Neg mg/dL (Negative) 07/03/21 Unknown Urine Blood Neg (Negative) 07/03/21 Unknown Urine Nitrite Neg (Negative) 07/03/21 Unknown Urine Bilirubin Neg (Negative) 07/03/21 Unknown Urine Urobilinogen < 2.0 mg/dL (<2.0) 07/03/21 Unknown Ur Leukocyte Esterase Neg (Negative) 07/03/21 Unknown Urine WBC (Auto) < 1.0 /HPF (0.0-6.0) 07/03/21 Unknown Urine RBC (Auto) < 1.0 /HPF (0.0-6.0) 07/03/21 Unknown U Epithel Cells (Auto) 1.0 /HPF (0-13.0) 07/03/21 Unknown Urine Bacteria (Auto) 1+ /HPF (Negative) 07/03/21 Unknown Urine Opiates Screen Negative 07/03/21 05:58 Urine Methadone Screen Negative 07/03/21 05:58 Ur Barbiturates Screen Negative 07/03/21 05:58 Ur Phencyclidine Scrn Negative 07/03/21 05:58 Ur Amphetamines Screen Negative 07/03/21 05:58 U Benzodiazepines Scrn Negative 07/03/21 05:58 Urine Cocaine Screen Negative 07/03/21 05:58 U Marijuana (THC) Screen Negative 07/03/21 05:58 Drugs of Abuse Note Disclamer 07/03/21 05:58 Active Medications - Current Medications Current Medications: Generic Name Dose Route Start Last Admin Trade Name Freq PRN Reason Stop Dose Admin Acetaminophen 650 mg 07/03/21 05:45 Acetaminophen 325 Mg Tab PO Q4H PRN Pain MILD(1-3)/Fever >100.5/SALAZAR Albuterol 2.5 mg 07/03/21 05:45 Albuterol 2.5 Mg/3 Ml Nebu IH Q3HRT PRN Shortness Of Breath Albuterol/Ipratropium 1 ampul 07/03/21 08:00 Ipratropium/Albuterol Sulfate 3 Ml Ampul.Neb IH Q6HRT JUAQUIN Famotidine 20 mg 07/03/21 10:00 Famotidine 20 Mg Tab PO BID JUAQUIN Furosemide 40 mg 07/03/21 06:00 Furosemide 40 Mg/4 Ml Inj IV BID@0600,1800 [facility] Heparin Sodium (Porcine) 5,000 unit 07/03/21 10:00 Heparin 5,000 Unit/1 Ml Vial SUB-Q Q12HR [facility] Hydromorphone HCl 0.5 mg 07/03/21 05:45 Hydromorphone 1 Mg/1 Ml Inj IV Q3H PRN Pain , Severe (7-10) Nitroglycerin/Dextrose 50 mg in 250 mls @ 3 mls/hr 07/03/21 04:00 07/03/21 05:42 Tridil Drip 50mg/250ml IV 10 mcg/min TITR JUAQUIN 3 mls/hr Administration Protocol 10 MCG/MIN Methylprednisolone Sodium Succinate 40 mg 07/03/21 10:00 Methylprednisolone Sod Succinate 40 Mg/1 Ml Inj IV Q12HR [facility] Montelukast Sodium 10 mg 07/03/21 22:00 Montelukast 10 Mg Tab PO QHS [facility] Morphine Sulfate 2 mg 07/03/21 05:45 Morphine 2 Mg/1 Ml Inj IV Q4H PRN Pain, Moderate (4-6) Ondansetron HCl 4 mg 07/03/21 05:45 Ondansetron 4 Mg/2 Ml Inj IV Q8H PRN Nausea And Vomiting Sodium Chloride 10 ml 07/03/21 10:00 Sodium Chloride 0.9% 10 Ml Flush Syringe IV BID [facility] Sodium Chloride 10 ml 07/03/21 05:45 Sodium Chloride 0.9% 10 Ml Flush Syringe IV PRN PRN LINE FLUSH
[2021-07-03] MEDS ORDERED: methylPREDNISolone Sod Succinate 40 MG/1 ML INJ IV SCH (10:00)
[2021-07-03] MEDS ORDERED: FAMOTIDINE 20 MG TAB PO SCH (10:00)
[2021-07-03] MEDS ORDERED: HEPARIN 5,000 UNIT/1 ML VIAL SUB-Q SCH (10:00)
[2021-07-03] MEDS: IPRATROPIUM/ALBUTEROL SULFATE 3 ML AMPUL.NEB IH SCH ×2 (10:57→16:11)
--- NOTE | 2021-07-03 11:12 | Discharge Summary ---
Providers - Providers Date of Admission: 07/03/21 05:45 Date of discharge: 07/03/21 Attending physician: NILDA REYES MD Primary care physician: LORI MORAN Hospitalization Reason for admission: shortness of breath Condition: Fair Hospital course: History of present illness: 50 years old female with history of COPD, hypertension questionable history of CHF was brought to the emergency room because of progressive shortness of breath. Patient O2 sat in the 80s and patient is hypertensive 181/128. Patient did not take the blood pressure medication because he could not find it. subsequently patient is brought to the emergency room and put on BiPAP as well as nitro drip for blood pressure 181/128. Now blood pressure is improved 151/99 and patient feels better. Still going to admit the patient to the medical floor for acute COPD exacerbation and CHF exacerbation. Hospital Course: Amelia Rodriguez was admitted for acute hypoxic respiratory failure due to COPD exacerbation. Review of chest x-ray imaging demonstrates findings consistent with COPD. Examination yielded expiratory wheezes in bilateral lung fierro. She was initially placed on BiPAP, treated with steroids, treated with nebulizer treatments. She improved with this therapy. She will be discharged home with prescriptions for Advair discus, budesonide inhaler, Atrovent inhaler, azithromycin course, steroid taper. She was also advised to quit smoking. She is advised to follow-up with her primary care physician in 3 to 5 days. Disposition: 01 HOME / SELF CARE / HOMELESS Final Discharge Diagnosis (Prints w/discharge instructions): COPD exacerbation Time spent for discharge: 35 Core Measure Documentation - Palliative Care Palliative Care/ Comfort Measures: Not Applicable - Core Measures Any of the following diagnoses?: none Exam - Physical Exam Narrative exam: General appearance: Present: no acute distress, well-nourished - EENT Eyes: Present: PERRL ENT: hearing intact, clear oral mucosa - Neck Neck: Present: supple, normal ROM - Respiratory Respiratory effort: normal Respiratory: bilateral: diminished - Cardiovascular Heart Sounds: Present: S1 & S2. Absent: rub, click - Extremities Extremities: pulses symmetrical, No edema Peripheral Pulses: within normal limits - Abdominal General gastrointestinal: Present: soft, non-tender, non-distended, normal bowel sounds Female genitourinary: Present: normal - Integumentary Integumentary: Present: clear, warm, dry - Musculoskeletal Musculoskeletal: gait normal, strength equal bilaterally - Psychiatric Psychiatric: appropriate mood/affect, intact judgment & insight - Neurologic Neurologic: CNII-XII intact, moves all extremities - Constitutional Vitals: Temp Pulse Resp BP Pulse Ox 98.9 F 113 H 16 153/104 97 07/03/21 09:14 07/03/21 09:14 07/03/21 09:14 07/03/21 09:14 07/03/21 09:14 Plan Activity: no restrictions Weight Bearing Status: Full Weight Bearing Special Instructions: smoking cessation Follow up with: LORI MORAN MD [Primary Care Provider] - 7 Days Prescriptions: Fluticasone/Salmeterol [Advair Diskus 250-50 mcg] 2 puff IH BID 30 Days #2 inh Ipratropium (Nf) [Atrovent] 2 puff IH Q6HR 30 Days #3 inha predniSONE [Deltasone] 40 mg PO QDAY 3 Days #3 tab Budesonide [Pulmicort Flexhaler] 180 mcg IH BID #2 inh Azithromycin [Zithromax TAB] 500 mg PO QDAY 2 Days #2 tab
[2021-07-03] MEDS ORDERED: hydrALAZINE 20 MG/1 ML INJ IV NR (16:13)
[2021-07-03 17:24] VITALS: BP 129/87
[2021-07-03] MEDS ORDERED: MONTELUKAST 10 MG TAB PO SCH (22:00)
--- NOTE | 2021-07-04 10:02 | Electrocardiograph Report ---
[facility] Test Date: 2021-07-03 Test Time: 05:51:54 Pat Name: SILAS HOLLIDAY Department: Room: A365 1 Gender: F [employer]: [employer]OR [employer] : 1970 Requested By: SCOTT CORTES Order Number: [id number] Reading MD: Rosales Cummings Measurements Intervals [place] Rate: 112 P: 54 MI: 123 QRS: 51 QRSD: 89 T: 85 QT: 345 QTc: 471 Interpretive Statements Sinus tachycardia Probable left atrial enlargement No previous ECG available for comparison [id number] Electronically Signed On 07-04-2021 10:02:05 EDT by Rosales Cummings
== END 2021-07-03 17:58 | disposition home or self-care (01) | DRG 189 ==
LOC: ED 03:37 → SUATTDRO 03:37 → 3A 05:45
PROVIDERS: ADMIT Hospitalist; ATTEND Internal Medicine
PROC: 5A09357 Assistance with Respiratory Ventilation, Less than 24 Consecutive Hours, Continuous Positive Airway Pressure (ICD-10-PCS; principal; 2021-07-03)
PROC: 4A033R1 Measurement of Arterial Saturation, Peripheral, Percutaneous Approach (ICD-10-PCS; 2021-07-03)
DX: J96.01 Acute respiratory failure with hypoxia (principal); J44.1 Chronic obstructive pulmonary disease with (acute) exacerbation; I16.1 Hypertensive emergency; I50.9 Heart failure, unspecified; I11.0 Hypertensive heart disease with heart failure
CPT/HCPCS: 36415; 71045; 80053; 80307; 81001; 82140; 82550; 82553; 82803; 83690; 83735; 83880; 84484; 85025; 85610; 93005; 93306; 94640; 94644; G0378; J3490; C8929; J1170; J1644; J1940; J2920

== ENCOUNTER 2021-07-08 22:13 | Emergency (ER) | payer MEDICAID ==
[2021-07-09 00:11] LABS: Basophils % (Auto) 0.2 % (0.0-1.8); Hematocrit 39.2 % (30.3-42.9); Hemoglobin 12.4 gm/dl (10.1-14.3); Lymphocytes # (Auto) 1.4 K/mm3 (1.2-5.4); Lymphocytes % (Auto) 9.3 % (13.4-35.0); Mean Corpuscular HGB Conc 32 % (30-34); Mean Corpuscular Volume 77 fl (79-97); Monocytes # (Auto) 0.9 K/mm3 (0.0-0.8); Monocytes % (Auto) 6.1 % (0.0-7.3); Platelet Count 160 K/mm3 (140-440); Red Cell Distribution Width 17.4 % (13.2-15.2)
[2021-07-09 00:29] LABS: Calcium 8.7 mg/dL (8.4-10.2)
[2021-07-09 01:34] LABS: Bacteria,Urine 1+ /HPF (Negative); Bilirubin,Urine NEG (Negative); Blood,Urine SM (Negative); Color,Urine Colorless (Yellow); RBC,Urine < 1.0 /HPF (0.0-6.0); Urobilinogen,Urine < 2.0 mg/dL (<2.0); WBC,Urine < 1.0 /HPF (0.0-6.0)
[2021-07-09 01:40] LABS: Amphetamine Screen,Urine PRESUMPTIVE NEGATIVE; Benzodiazepines Screen,Urine PRESUMPTIVE NEGATIVE; Cannabinoid Screen,Urine PRESUMPTIVE NEGATIVE; Cocaine Screen,Urine PRESUMPTIVE NEGATIVE; Methadone Screen,Urine PRESUMPTIVE NEGATIVE; Opiate Screen,Urine PRESUMPTIVE NEGATIVE
[2021-07-09] MEDS ORDERED: IPRATROPIUM 0.02% NEBU 2.5 ML IH ONE ×2 (02:28→02:32)
[2021-07-09] MEDS ORDERED: ALBUTEROL 2.5 MG/3 ML NEBU IH ONE ×2 (02:29→02:32)
[2021-07-09] MEDS ORDERED: predniSONE 20 MG TAB PO ONE (02:32)
--- NOTE | 2021-07-09 03:07 | Emergency Department Report ---
ED Psych HPI - General Chief Complaint: Psych Stated Complaint: MH Time Seen by Provider: 07/09/21 02:08 Source: patient Mode of arrival: Ambulatory Limitations: No Limitations - History of Present Illness Initial Comments: 40-year-old female past medical history hypertension, COPD, and schizoaffective disorder/paranoid schizophrenia presents to the hospital planing of suicidal ideation for 1 to 2 days. Patient feels bad about herself. Her plan is to cut herself and she is wanting to go into a psychiatric hospital. Patient also has a history of COPD with recent hospital visits here due to same. She is currently wheezing at time of my evaluation and requesting a breathing treatment due to shortness of breath. Patient takes multiple psychiatric medications including Zyprexa, Vistaril, Topamax, and trazodone. Last discharged from the hospital on July 03. Most recent meds will be continued - Related Data Previous Rx's Medication Instructions Recorded Last Taken Type Albuterol Mdi (or & Nicu Only) 2 puff IH QID PRN #8.5 gram 04/15/21 Unknown Rx [ProAir HFA Inhaler] Azithromycin [Zithromax TAB] 500 mg PO QDAY 2 Days #2 tab 07/03/21 Unknown Rx Budesonide [Pulmicort Flexhaler] 180 mcg IH BID #2 inh 07/03/21 Unknown Rx Fluticasone/Salmeterol [Advair 2 puff IH BID 30 Days #2 inh 07/03/21 Unknown Rx Diskus 250-50 mcg] Ipratropium (Nf) [Atrovent] 2 puff IH Q6HR 30 Days #3 inha 07/03/21 Unknown Rx amLODIPine 10 mg PO DAILY 30 Days #30 tab 07/03/21 Unknown Rx lisinopriL [Zestril TAB] 40 mg PO QDAY 30 Days #30 tab 07/03/21 Unknown Rx predniSONE [Deltasone] 40 mg PO QDAY 3 Days #3 tab 07/03/21 Unknown Rx Allergies Allergy/AdvReac Type Severity Reaction Status Date / Time No Known Allergies Allergy Unverified 04/15/21 18:06 ED Review of Systems ROS: Stated complaint: MH Other details as noted in HPI Comment: All other systems reviewed and negative ED Past Medical Hx - Past Medical History Hx Hypertension: Yes Hx Heart Attack/AMI: Yes Hx Psychiatric Treatment: Yes Hx COPD: Yes - Surgical History Hx Open Heart Surgery: Yes - Social History Smoking Status: Current Every Day Smoker - Medications Home Medications: Home Medications Medication Instructions Recorded Confirmed Last Taken Type Albuterol Mdi (or & Nicu Only) 2 puff IH QID PRN #8.5 gram 04/15/21 Unknown Rx [ProAir HFA Inhaler] Azithromycin [Zithromax TAB] 500 mg PO QDAY 2 Days #2 tab 07/03/21 Unknown Rx Budesonide [Pulmicort Flexhaler] 180 mcg IH BID #2 inh 07/03/21 Unknown Rx Fluticasone/Salmeterol [Advair 2 puff IH BID 30 Days #2 inh 07/03/21 Unknown Rx Diskus 250-50 mcg] Ipratropium (Nf) [Atrovent] 2 puff IH Q6HR 30 Days #3 inha 07/03/21 Unknown Rx amLODIPine 10 mg PO DAILY 30 Days #30 tab 07/03/21 Unknown Rx lisinopriL [Zestril TAB] 40 mg PO QDAY 30 Days #30 tab 07/03/21 Unknown Rx predniSONE [Deltasone] 40 mg PO QDAY 3 Days #3 tab 07/03/21 Unknown Rx ED Physical Exam - General Limitations: No Limitations - Other Other exam information: General: Mild respiratory distress Head: Atraumatic Eyes: normal appearance ENT: Moist mucous membranes Neck: Normal appearance, no midline tenderness Chest: Bilateral wheezing, tachypnea, mild accessory muscle use CV: Regular rate and rhythm Abdomen: Soft, normal bowel sounds, nontender, nondistended, no rebound or guar ding Back: Normal inspection Extremity: Normal inspection, full range of motion Neuro: Alert O x 3, no facial asymmetry, speech clear, no gross motor sensory deficit Psych: Appropriate behavior Skin: No rash ED Course Vital Signs 07/08/21 07/09/21 07/09/21 22:56 03:00 03:03 Temperature 97.8 F Pulse Rate 94 H 97 H Pulse Rate [ 98 H Bilateral Throughout] Respiratory 18 18 Rate Respiratory 18 Rate [Bilateral Throughout] Blood Pressure 187/101 O2 Sat by Pulse 95 99 Oximetry 07/09/21 07/09/21 07/09/21 03:16 03:30 04:26 Temperature Pulse Rate 93 H 97 H Pulse Rate [ Bilateral Throughout] Respiratory 17 18 18 Rate Respiratory Rate [Bilateral Throughout] Blood Pressure 131/84 132/87 O2 Sat by Pulse 99 99 Oximetry - Reevaluation(s) Reevaluation #1: 07/09/21 04:12 Breath sounds improved air bronchodilators. Prednisone provided. Patient requesting medication for sleep. Patient states she takes Klonopin. Vistaril 100 mg ordered ED Medical Decision Making - Lab Data Result diagrams: 07/08/21 23:45 07/08/21 23:45 Lab Results 07/08/21 07/08/21 07/08/21 Range/Units 23:45 23:45 23:45 WBC 14.5 H (4.5-11.0) K/mm3 RBC 5.10 H (3.65-5.03) M/mm3 Hgb 12.4 (10.1-14.3) gm/dl Hct 39.2 (30.3-42.9) % MCV 77 L (79-97) fl MCH 24 L (28-32) pg MCHC 32 (30-34) % RDW 17.4 H (13.2-15.2) % Plt Count 160 (140-440) K/mm3 Lymph % (Auto) 9.3 L (13.4-35.0) % [place] % (Auto) 6.1 (0.0-7.3) % Eos % (Auto) 0.0 (0.0-4.3) % Baso % (Auto) 0.2 (0.0-1.8) % Lymph # (Auto) 1.4 (1.2-5.4) K/mm3 [place] # (Auto) 0.9 H (0.0-0.8) K/mm3 Eos # (Auto) 0.0 (0.0-0.4) K/mm3 Baso # (Auto) 0.0 (0.0-0.1) K/mm3 Seg Neutrophils % 84.4 H (40.0-70.0) % Seg Neutrophils # 12.3 H (1.8-7.7) K/mm3 Sodium 135 L (137-145) mmol/L Potassium 4.6 (3.6-5.0) mmol/L Chloride 97.6 L (98-107) mmol/L Carbon Dioxide 27 (22-30) mmol/L Anion Gap 15 mmol/L BUN 18 H (7-17) mg/dL Creatinine 1.2 (0.6-1.2) mg/dL Estimated GFR 48 ml/min BUN/Creatinine Ratio 15 % Glucose 92 (65-100) mg/dL Calcium 8.7 (8.4-10.2) mg/dL HCG, Qual (Negative) Urine Color (Yellow) Urine Turbidity (Clear) Urine pH (5.0-7.0) Ur Specific [place] (1.003-1.030) Urine Protein (Negative) mg/dL Urine Glucose (UA) (Negative) mg/dL Urine Ketones (Negative) mg/dL Urine Blood (Negative) Urine Nitrite (Negative) Urine Bilirubin (Negative) Urine Urobilinogen (<2.0) mg/dL Ur Leukocyte Esterase (Negative) Urine WBC (Auto) (0.0-6.0) /HPF Urine RBC (Auto) (0.0-6.0) /HPF U Epithel Cells (Auto) (0-13.0) /HPF Urine Bacteria (Auto) (Negative) /HPF Urine Yeast (Budding) /HPF Salicylates < 0.3 L (2.8-20.0) mg/dL Urine Opiates Screen Urine Methadone Screen Acetaminophen (10.0-30.0) ug/mL Ur Barbiturates Screen Ur Phencyclidine Scrn Ur Amphetamines Screen U Benzodiazepines Scrn Urine Cocaine Screen U Marijuana (THC) Screen Drugs of Abuse Note Plasma/Serum Alcohol (0-0.07) % 07/08/21 07/08/21 07/08/21 Range/Units 23:45 23:45 23:45 WBC (4.5-11.0) K/mm3 RBC (3.65-5.03) M/mm3 Hgb (10.1-14.3) gm/dl Hct (30.3-42.9) % MCV (79-97) fl MCH (28-32) pg MCHC (30-34) % RDW (13.2-15.2) % Plt Count (140-440) K/mm3 Lymph % (Auto) (13.4-35.0) % [place] % (Auto) (0.0-7.3) % Eos % (Auto) (0.0-4.3) % Baso % (Auto) (0.0-1.8) % Lymph # (Auto) (1.2-5.4) K/mm3 [place] # (Auto) (0.0-0.8) K/mm3 Eos # (Auto) (0.0-0.4) K/mm3 Baso # (Auto) (0.0-0.1) K/mm3 Seg Neutrophils % (40.0-70.0) % Seg Neutrophils # (1.8-7.7) K/mm3 Sodium (137-145) mmol/L Potassium (3.6-5.0) mmol/L Chloride (98-107) mmol/L Carbon Dioxide (22-30) mmol/L Anion Gap mmol/L BUN (7-17) mg/dL Creatinine (0.6-1.2) mg/dL Estimated GFR ml/min BUN/Creatinine Ratio % Glucose (65-100) mg/dL Calcium (8.4-10.2) mg/dL HCG, Qual Negative (Negative) Urine Color (Yellow) Urine Turbidity (Clear) Urine pH (5.0-7.0) Ur Specific [place] (1.003-1.030) Urine Protein (Negative) mg/dL Urine Glucose (UA) (Negative) mg/dL Urine Ketones (Negative) mg/dL Urine Blood (Negative) Urine Nitrite (Negative) Urine Bilirubin (Negative) Urine Urobilinogen (<2.0) mg/dL Ur Leukocyte Esterase (Negative) Urine WBC (Auto) (0.0-6.0) /HPF Urine RBC (Auto) (0.0-6.0) /HPF U Epithel Cells (Auto) (0-13.0) /HPF Urine Bacteria (Auto) (Negative) /HPF Urine Yeast (Budding) /HPF Salicylates (2.8-20.0) mg/dL Urine Opiates Screen Urine Methadone Screen Acetaminophen 5.1 L (10.0-30.0) ug/mL Ur Barbiturates Screen Ur Phencyclidine Scrn Ur Amphetamines Screen U Benzodiazepines Scrn Urine Cocaine Screen U Marijuana (THC) Screen Drugs of Abuse Note Plasma/Serum Alcohol < 0.01 (0-0.07) % 07/08/21 07/08/21 Range/Units Unknown Unknown WBC (4.5-11.0) K/mm3 RBC (3.65-5.03) M/mm3 Hgb (10.1-14.3) gm/dl Hct (30.3-42.9) % MCV (79-97) fl MCH (28-32) pg MCHC (30-34) % RDW (13.2-15.2) % Plt Count (140-440) K/mm3 Lymph % (Auto) (13.4-35.0) % [place] % (Auto) (0.0-7.3) % Eos % (Auto) (0.0-4.3) % Baso % (Auto) (0.0-1.8) % Lymph # (Auto) (1.2-5.4) K/mm3 [place] # (Auto) (0.0-0.8) K/mm3 Eos # (Auto) (0.0-0.4) K/mm3 Baso # (Auto) (0.0-0.1) K/mm3 Seg Neutrophils % (40.0-70.0) % Seg Neutrophils # (1.8-7.7) K/mm3 Sodium (137-145) mmol/L Potassium (3.6-5.0) mmol/L Chloride (98-107) mmol/L Carbon Dioxide (22-30) mmol/L Anion Gap mmol/L BUN (7-17) mg/dL Creatinine (0.6-1.2) mg/dL Estimated GFR ml/min BUN/Creatinine Ratio % Glucose (65-100) mg/dL Calcium (8.4-10.2) mg/dL HCG, Qual (Negative) Urine Color Colorless (Yellow) Urine Turbidity Clear (Clear) Urine pH 6.0 (5.0-7.0) Ur Specific [place] 1.003 (1.003-1.030) Urine Protein 100 mg/dl (Negative) mg/dL Urine Glucose (UA) Neg (Negative) mg/dL Urine Ketones Neg (Negative) mg/dL Urine Blood Sm (Negative) Urine Nitrite Neg (Negative) Urine Bilirubin Neg (Negative) Urine Urobilinogen < 2.0 (<2.0) mg/dL Ur Leukocyte Esterase Neg (Negative) Urine WBC (Auto) < 1.0 (0.0-6.0) /HPF Urine RBC (Auto) < 1.0 (0.0-6.0) /HPF U Epithel Cells (Auto) 1.0 (0-13.0) /HPF Urine Bacteria (Auto) 1+ (Negative) /HPF Urine Yeast (Budding) Few /HPF Salicylates (2.8-20.0) mg/dL Urine Opiates Screen Presumptive negative Urine Methadone Screen Presumptive negative Acetaminophen (10.0-30.0) ug/mL Ur Barbiturates Screen Presumptive negative Ur Phencyclidine Scrn Presumptive negative Ur Amphetamines Screen Presumptive negative U Benzodiazepines Scrn Presumptive negative Urine Cocaine Screen Presumptive negative U Marijuana (THC) Screen Presumptive negative Drugs of Abuse Note Disclamer Plasma/Serum Alcohol (0-0.07) % - Radiology Data Radiology results: report reviewed CHEST 1 VIEW INDICATION / CLINICAL INFORMATION: sob, wheezing. COMPARISON: 07/03/2021 FINDINGS: SUPPORT DEVICES: None. HEART / MEDIASTINUM: Sternotomy. Prosthetic mitral valve LUNGS / PLEURA: Previously noted small left pleural effusion has mostly resolved. The lungs remain mildly hyperinflated consistent with COPD. The lungs are otherwise grossly clear. No pneumothorax. Mild pulmonary vascular congestion. ADDITIONAL FINDINGS: No significant additional findings. IMPRESSION: 1. Resolution of previously noted small left pleural effusion. 2. Mild pulmonary vascular congestion. 3. COPD. - Medical Decision Making 50-year-old female presents to the hospital with suicidal ideation. Patient also complains of wheezing secondary to COPD exacerbation. COPD exacerbation improved after prednisone and bronchodilators. No signs of hypoxia. Patient is currently 1013 for suicidal ideation is medically cleared awaiting mental health evaluation. Recently discharge medications will be continued. Pending mental health evaluation for continuation/recommendation of psychiatric meds. Critical Care Time: No Critical care attestation.: If time is entered above; I have spent that time in minutes in the direct care of this critically ill patient, excluding procedure time. ED Disposition Clinical Impression: Acute exacerbation of chronic obstructive pulmonary disease (COPD), Suicidal ideation, Medical clearance for psychiatric admission Disposition: [address] [place] [address] Is pt being admited?: No Condition: Stable Instructions: Chronic Obstructive Pulmonary Disease (ED)
[2021-07-09] MEDS ORDERED: ALBUTEROL 8.5 GM MDI INHALATION IH PRN (03:09)
--- NOTE | 2021-07-09 03:51 | XRay Report ---
CHEST 1 VIEW INDICATION / CLINICAL INFORMATION: sob, wheezing. COMPARISON: 07/03/2021 FINDINGS: SUPPORT DEVICES: None. HEART / MEDIASTINUM: Sternotomy. Prosthetic mitral valve LUNGS / PLEURA: Previously noted small left pleural effusion has mostly resolved. The lungs remain mi ldly hyperinflated consistent with COPD. The lungs are otherwise grossly clear. No pneumothorax. Mild pulmonary vascular congestion. ADDITIONAL FINDINGS: No significant additional findings. IMPRESSION: 1. Resolution of previously noted small left pleural effusion. 2. Mild pulmonary vascular congestion. 3. COPD. Signer Name: Amy Mathew MD Signed: 07/09/2021 3:46 AM Workstation Name: [id number]
[2021-07-09] MEDS ORDERED: ACETAMINOPHEN 500 MG TAB PO ONE (04:24)
[2021-07-09] MEDS ORDERED: NON-FORMULARY EACH (Ipratropium (Nf) 1 PUFF Inha) IH SCH (06:00)
[2021-07-09] MEDS: BUDESONIDE 0.5 MG/2 ML NEBU IH SCH ×2 (08:00→20:00)
[2021-07-09] MEDS: IPRATROPIUM 0.02% NEBU 2.5 ML IH SCH ×3 (08:57→20:00)
[2021-07-09] MEDS: ARFORMOTEROL 15 MCG/2 ML NEBU IH SCH ×2 (08:58→20:00)
[2021-07-09] MEDS ORDERED: BUDESONIDE 180 MCG IH SCH (10:00)
[2021-07-09] MEDS ORDERED: NON-FORMULARY EACH (Fluticasone/Salmeterol [Advair Diskus 250-50 Mcg] 1 EACH Blst.W.Dev) IH SCH (10:00)
[2021-07-09] MEDS ORDERED: LISINOPRIL 20 MG TAB ONE (10:06)
[2021-07-09] MEDS: LISINOPRIL 40 MG TAB PO SCH (10:12)
[2021-07-09] MEDS: amLODIPine 10 MG TAB PO SCH (10:12)
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
[2021-07-09] MEDS: GABAPENTIN 100 MG CAP PO SCH ×2 (12:05→22:00)
[2021-07-09] MEDS ORDERED: FLUCONAZOLE 200 MG TAB PO ONE (12:06)
--- NOTE | 2021-07-09 12:24 | Event Note ---
Date: 07/09/21 S: No events reported overnight O: Vital Signs - 8 hr 07/09/21 07/09/21 07/09/21 04:26 04:30 04:46 Temperature Pulse Rate 99 H 93 H Respiratory 18 16 15 Rate Blood Pressure 156/93 156/93 Blood Pressure [Right] O2 Sat by Pulse 96 93 Oximetry 07/09/21 07/09/21 07/09/21 05:00 05:16 05:31 Temperature Pulse Rate 92 H 97 H 97 H Respiratory 13 16 20 Rate Blood Pressure 156/93 156/93 142/94 Blood Pressure [Right] O2 Sat by Pulse 94 93 92 Oximetry 07/09/21 07/09/21 07/09/21 05:46 06:00 06:16 Temperature Pulse Rate 96 H 93 H 93 H Respiratory 14 15 13 Rate Blood Pressure 144/102 137/93 153/95 Blood Pressure [Right] O2 Sat by Pulse 94 95 96 Oximetry 07/09/21 07/09/21 07/09/21 09:33 10:12 11:32 Temperature 98.4 F Pulse Rate 91 H 91 H Respiratory 20 Rate Blood Pressure 131/81 Blood Pressure 131/81 [Right] O2 Sat by Pulse 94 94 Oximetry A: Major depressive disorder, funguria PE: 1013/awaiting inpatient psych. Diflucan
[2021-07-09] MEDS ORDERED: IBUPROFEN 800 MG TAB PO PRN (16:36)
--- NOTE | 2021-07-10 09:11 | Progress Note ---
Subjective - Reason for Consult Consult date: 07/10/21 Reason for consult: SI - Chief Complaint Chief complaint: The patient was seen this morning. She reports doing well but continues to complain of pain. She denies any current suicidal/homicidal ideation and denies hallucinations. REVIEW OF SYSTEMS Constitutional: Negative for weight loss ENT: Negative for stridor Respiratory: Negative for cough or hemoptysis All other systems reviewed and are negative MENTAL STATUS EXAMINATION General Appearance and Behavior: Age appropriate, good hygiene, wearing appropriate clothes, calm, cooperative Cooperation: Participating/engaged Psychomotor Behavior: Normal Mood: depressed Affect and affective range: congruent with mood Thought Process: Goal directed Thought Content: Reality oriented Speech: Normal Suicidal Ideation: Denies Homicidal Ideation: Denies Hallucinations: Denies Delusions: None Impulse Control: Normal Insight and Judgment: Limited insight and judgment, Memory: Normal Attention: Divided Orientation: Alert, oriented Assessment and Plan (1)major depressive disorder Current Visit: Yes Status: Acute Treatment Plan Dc 1013 Continue home meds. Continue Gabapentin 100mg po BID Continue Zyprexa 5mg po QHS The patient needs to follow up with his outpatient psychiatrist and therapist. Continue home meds Disposition:Do not recommend psychiatric inpatient admission at this time. Human Resources Services Specialist will provide the patient with psychiatric out patient resourcec and safety plan. Will sign off. Thanks Case staffed with Dr. Valdez Medications and Allergies Mental Status Exam - Vital signs Last Vital Signs Temp 98.4 F 07/09/21 09:33 Pulse 91 H 07/09/21 10:12 Resp 20 07/09/21 09:33 BP 131/81 07/09/21 10:12 Pulse Ox 94 07/09/21 11:32
[2021-07-10] MEDS ORDERED: predniSONE 20 MG TAB PO SCH (10:00)
[2021-07-10 10:17] VITALS: BP 145/78
[2021-07-10] MEDS: IPRATROPIUM 0.02% NEBU 2.5 ML IH SCH ×2 (10:23→10:50)
[2021-07-10] MEDS: BUDESONIDE 0.5 MG/2 ML NEBU IH SCH (10:49)
[2021-07-10] MEDS: ARFORMOTEROL 15 MCG/2 ML NEBU IH SCH (10:50)
[2021-07-10] MEDS: GABAPENTIN 100 MG CAP PO SCH (10:50)
[2021-07-10] MEDS: amLODIPine 10 MG TAB PO SCH (10:50)
[2021-07-10] MEDS: LISINOPRIL 40 MG TAB PO SCH (10:51)
== END 2021-07-10 13:37 | disposition home or self-care (01) ==
LOC: ED 22:13
DX: J44.1 Chronic obstructive pulmonary disease with (acute) exacerbation (principal); R45.851 Suicidal ideations; I10 Essential (primary) hypertension; I21.9 Acute myocardial infarction, unspecified; F17.200 Nicotine dependence, unspecified, uncomplicated; Z20.822 Contact with and (suspected) exposure to COVID-19
CPT/HCPCS: 36415; 71045; 80048; 80307; 81001; 84703; 85025; 94640; 99285; Q0177; U0003; 80320; 94644; 99284; G0480

== ENCOUNTER 2021-08-02 18:56 | Emergency (ER) | payer MEDICAID ==
[2021-08-02 19:55] VITALS: BP 159/93
[2021-08-03] MEDS ORDERED: ALBUTEROL 2.5 MG/3 ML NEBU IH ONE (04:32)
[2021-08-03] MEDS ORDERED: methylPREDNISolone Sod Succinate 125 MG/2 ML INJ IM ONE (04:32)
--- NOTE | 2021-08-03 05:12 | Emergency Department Report ---
ED Female HPI - General Chief complaint: Urogenital-Female Stated complaint: TROUBLE BREATHING/BOTTOM HURTING Time Seen by Provider: 08/03/21 04:28 Source: patient Mode of arrival: Ambulatory Limitations: No Limitations - History of Present Illness Initial comments: Patient is a 50-year-old female presenting with complaint of rectal pain. States she was seen at outside facility recently and was told she may have syphilis. She denies any discharge or vaginal pain. She reports constipation with last bowel movement occurring yesterday consisting of small hard stools. She also has history of COPD and reports wheezing with request for nebulizer treatment. - Related Data Previous Rx's Medication Instructions Recorded Last Taken Type Albuterol Mdi (or & Nicu Only) 2 puff IH QID PRN #8.5 gram 04/15/21 Unknown Rx [ProAir HFA Inhaler] Azithromycin [Zithromax TAB] 500 mg PO QDAY 2 Days #2 tab 07/03/21 Unknown Rx Budesonide [Pulmicort Flexhaler] 180 mcg IH BID #2 inh 07/03/21 Unknown Rx Fluticasone/Salmeterol [Advair 2 puff IH BID 30 Days #2 inh 07/03/21 Unknown Rx Diskus 250-50 mcg] Ipratropium (Nf) [Atrovent] 2 puff IH Q6HR 30 Days #3 inha 07/03/21 Unknown Rx amLODIPine 10 mg PO DAILY 30 Days #30 tab 07/03/21 Unknown Rx lisinopriL [Zestril TAB] 40 mg PO QDAY 30 Days #30 tab 07/03/21 Unknown Rx predniSONE [Deltasone] 40 mg PO QDAY 3 Days #3 tab 07/03/21 Unknown Rx Gabapentin 100 mg PO BID 30 Days #60 capsule 07/10/21 Unknown Rx OLANzapine [ZyPREXA] 5 mg PO QHS 30 Days #30 tablet 07/10/21 Unknown Rx Magnesium Hydroxide [Milk of 400 mg PO DAILY #1 bottle 08/03/21 Unknown Rx Magnesia] Allergies Allergy/AdvReac Type Severity Reaction Status Date / Time No Known Allergies Allergy Verified 08/02/21 19:54 ED Review of Systems ROS: Stated complaint: TROUBLE BREATHING/BOTTOM HURTING Other details as noted in HPI Comment: All other systems reviewed and negative Constitutional: denies: chills, fever ENT: denies: ear pain, throat pain Respiratory: shortness of breath, wheezing Cardiovascular: denies: chest pain, palpitations Endocrine: no symptoms reported Gastrointestinal: other (Rectal pain) Genitourinary: denies: dysuria, hematuria, discharge Skin: denies: rash, lesions Neurological: denies: headache, weakness, paresthesias Psychiatric: as per HPI ED Past Medical Hx - Past Medical History Hx Hypertension: Yes Hx Heart Attack/AMI: Yes Hx Psychiatric Treatment: Yes Hx COPD: Yes - Surgical History Hx Open Heart Surgery: Yes - Social History Smoking Status: Current Every Day Smoker - Medications Home Medications: Home Medications Medication Instructions Recorded Confirmed Last Taken Type Albuterol Mdi (or & Nicu Only) 2 puff IH QID PRN #8.5 gram 04/15/21 Unknown Rx [ProAir HFA Inhaler] Azithromycin [Zithromax TAB] 500 mg PO QDAY 2 Days #2 tab 07/03/21 Unknown Rx Budesonide [Pulmicort Flexhaler] 180 mcg IH BID #2 inh 07/03/21 Unknown Rx Fluticasone/Salmeterol [Advair 2 puff IH BID 30 Days #2 inh 07/03/21 Unknown Rx Diskus 250-50 mcg] Ipratropium (Nf) [Atrovent] 2 puff IH Q6HR 30 Days #3 inha 07/03/21 Unknown Rx amLODIPine 10 mg PO DAILY 30 Days #30 tab 07/03/21 Unknown Rx lisinopriL [Zestril TAB] 40 mg PO QDAY 30 Days #30 tab 07/03/21 Unknown Rx predniSONE [Deltasone] 40 mg PO QDAY 3 Days #3 tab 07/03/21 Unknown Rx Gabapentin 100 mg PO BID 30 Days #60 capsule 07/10/21 Unknown Rx OLANzapine [ZyPREXA] 5 mg PO QHS 30 Days #30 tablet 07/10/21 Unknown Rx Magnesium Hydroxide [Milk of 400 mg PO DAILY #1 bottle 08/03/21 Unknown Rx Magnesia] ED Physical Exam - General Limitations: No Limitations General appearance: alert, in no apparent distress - Head Head exam: Present: atraumatic, normocephalic - ENT ENT exam: Present: normal exam, mucous membranes moist - Neck Neck exam: Present: normal inspection - Respiratory Respiratory exam: Present: respiratory distress (Mild), wheezes (Diffuse expiratory wheezing) - Cardiovascular Cardiovascular Exam: Present: regular rate, normal rhythm, normal heart sounds - GI/Abdominal GI/Abdominal exam: Present: soft, other (On digital rectal exam there are no palpable hemorrhoids however there is hard stool palpated in the rectal vault. External examination unremarkable.). Absent: distended, tenderness - Rectal Rectal exam: Present: normal rectal tone. Absent: hemorrhoids, tenderness - External exam: Present: normal external exam. Absent: erythema, lesions, bleeding - Neurological Exam Neurological exam: Present: alert, oriented X3, CN II-XII intact - Psychiatric Psychiatric exam: Present: normal affect, normal mood - Skin Skin exam: Present: warm, dry, intact, normal color ED Course Vital Signs 08/02/21 08/03/21 19:51 04:45 Temperature 98.7 F Pulse Rate 111 H Respiratory 16 Rate Blood Pressure 159/93 O2 Sat by Pulse 94 95 Oximetry ED Medical Decision Making - Medical Decision Making Patient given albuterol nebulization along with IM Solu-Medrol. On reassessment patient sleeping comfortably in bed. I discussed with her the importance of hig h-fiber diet and will discharge with Rx for milk of magnesia. Critical care attestation.: If time is entered above; I have spent that time in minutes in the direct care of this critically ill patient, excluding procedure time. ED Disposition Clinical Impression: Constipation, Acute exacerbation of chronic obstructive pulmonary disease (COPD) Disposition: HOME / SELF CARE / HOMELESS Is pt being admited?: No Does the pt Need Aspirin: No Condition: Stable Instructions: Chronic Obstructive Pulmonary Disease (ED) Referrals: PRIMARY CARE, [Primary Care Provider] - 3-5 Days Time of Disposition: 05:24 Print Language: MALTESE
== END 2021-08-03 06:01 | disposition home or self-care (01) ==
LOC: ED 18:56
DX: K59.00 Constipation, unspecified (principal); J44.1 Chronic obstructive pulmonary disease with (acute) exacerbation; I21.9 Acute myocardial infarction, unspecified; I10 Essential (primary) hypertension; F17.200 Nicotine dependence, unspecified, uncomplicated; Z79.899 Other long term (current) drug therapy
CPT/HCPCS: 94640; 96372; 99282; J2930; 94644

== ENCOUNTER 2021-08-25 04:43 | Inpatient (IN) | payer MEDICAID ==
--- NOTE | 2021-08-25 07:28 | Emergency Department Report ---
ED Shortness of Breath HPI - General Chief Complaint: Dyspnea/Respdistress Stated Complaint: BREATH Time Seen by Provider: 08/25/21 06:25 Source: patient Mode of arrival: Ambulatory Limitations: No Limitations - History of Present Illness Initial Comments: 50 yo F with h/o COPD and RLS brought in by EMS with SOB and oxygen saturation as low as 81% on RA on presentation to ED. Pt confirmed having restless leg syndrome overnight and was not able to get good night sleep. She denies any smoking however and unsure what causes her COPD. No fever or chills reported. No other modifying or associated factors. - Related Data Previous Rx's Medication Instructions Recorded Last Taken Type Albuterol Mdi (or & Nicu Only) 2 puff IH QID PRN #8.5 gram 04/15/21 Unknown Rx [ProAir HFA Inhaler] Azithromycin [Zithromax TAB] 500 mg PO QDAY 2 Days #2 tab 07/03/21 Unknown Rx Budesonide [Pulmicort Flexhaler] 180 mcg IH BID #2 inh 07/03/21 Unknown Rx Fluticasone/Salmeterol [Advair 2 puff IH BID 30 Days #2 inh 07/03/21 Unknown Rx Diskus 250-50 mcg] Ipratropium (Nf) [Atrovent] 2 puff IH Q6HR 30 Days #3 inha 07/03/21 Unknown Rx amLODIPine 10 mg PO DAILY 30 Days #30 tab 07/03/21 Unknown Rx lisinopriL [Zestril TAB] 40 mg PO QDAY 30 Days #30 tab 07/03/21 Unknown Rx predniSONE [Deltasone] 40 mg PO QDAY 3 Days #3 tab 07/03/21 Unknown Rx Gabapentin 100 mg PO BID 30 Days #60 capsule 07/10/21 Unknown Rx OLANzapine [ZyPREXA] 5 mg PO QHS 30 Days #30 tablet 07/10/21 Unknown Rx Magnesium Hydroxide [Milk of 400 mg PO DAILY #1 bottle 08/03/21 Unknown Rx Magnesia] Allergies Allergy/AdvReac Type Severity Reaction Status Date / Time No Known Allergies Allergy Verified 08/02/21 19:54 ED Review of Systems ROS: Stated complaint: BREATH Other details as noted in HPI Comment: All other systems reviewed and negative Respiratory: cough, shortness of breath, SOB at rest Musculoskeletal: myalgia, other (Restless leg syndrome) Psychiatric: anxiety ED Past Medical Hx - Past Medical History Hx Hypertension: Yes Hx Heart Attack/AMI: Yes Hx Psychiatric Treatment: Yes Hx COPD: Yes - Surgical History Hx Open Heart Surgery: Yes - Social History Smoking Status: Current Every Day Smoker - Medications Home Medications: Home Medications Medication Instructions Recorded Confirmed Last Taken Type Albuterol Mdi (or & Nicu Only) 2 puff IH QID PRN #8.5 gram 04/15/21 Unknown Rx [ProAir HFA Inhaler] Azithromycin [Zithromax TAB] 500 mg PO QDAY 2 Days #2 tab 07/03/21 Unknown Rx Budesonide [Pulmicort Flexhaler] 180 mcg IH BID #2 inh 07/03/21 Unknown Rx Fluticasone/Salmeterol [Advair 2 puff IH BID 30 Days #2 inh 07/03/21 Unknown Rx Diskus 250-50 mcg] Ipratropium (Nf) [Atrovent] 2 puff IH Q6HR 30 Days #3 inha 07/03/21 Unknown Rx amLODIPine 10 mg PO DAILY 30 Days #30 tab 07/03/21 Unknown Rx lisinopriL [Zestril TAB] 40 mg PO QDAY 30 Days #30 tab 07/03/21 Unknown Rx predniSONE [Deltasone] 40 mg PO QDAY 3 Days #3 tab 07/03/21 Unknown Rx Gabapentin 100 mg PO BID 30 Days #60 capsule 07/10/21 Unknown Rx OLANzapine [ZyPREXA] 5 mg PO QHS 30 Days #30 tablet 07/10/21 Unknown Rx Magnesium Hydroxide [Milk of 400 mg PO DAILY #1 bottle 08/03/21 Unknown Rx Magnesia] ED Physical Exam - General Limitations: No Limitations General appearance: alert, in no apparent distress - Head Head exam: Present: normal inspection - Eye Eye exam: Present: normal appearance Pupils: Present: normal accommodation - ENT ENT exam: Present: normal exam, normal orophraynx, mucous membranes moist - Neck Neck exam: Present: normal inspection. Absent: tenderness - Respiratory Respiratory exam: Present: normal lung sounds bilaterally. Absent: respiratory distress, wheezes, accessory muscle use - Cardiovascular Cardiovascular Exam: Present: regular rate, normal rhythm, normal heart sounds - GI/Abdominal GI/Abdominal exam: Present: soft, normal bowel sounds. Absent: distended, tenderness - Back Exam Back exam: Present: normal inspection. Absent: tenderness - Neurological Exam Neurological exam: Present: alert, oriented X3 - Psychiatric Psychiatric exam: Present: normal affect, normal mood - Skin Skin exam: Present: warm, intact, normal color ED Course Vital Signs 08/25/21 08/25/21 08/25/21 04:48 05:47 06:00 Temperature 98.6 F Pulse Rate 122 H 122 H 120 H Respiratory 18 23 20 Rate Blood Pressure 175/106 146/89 Blood Pressure [Left] O2 Sat by Pulse 89 97 98 Oximetry 08/25/21 08/25/21 08/25/21 06:16 06:30 07:02 Temperature Pulse Rate 121 H 119 H Respiratory 20 19 Rate Blood Pressure 149/126 111/73 111/73 Blood Pressure [Left] O2 Sat by Pulse 97 98 89 Oximetry 08/25/21 08/25/21 08/25/21 07:30 10:54 11:01 Temperature Pulse Rate Respiratory Rate Blood Pressure 154/97 Blood Pressure [Left] O2 Sat by Pulse 99 96 98 Oximetry 08/25/21 08/25/21 08/25/21 11:28 15:21 15:24 Temperature Pulse Rate 111 H 66 Respiratory 16 Rate Blood Pressure 100/60 Blood Pressure 154/97 152/86 [Left] O2 Sat by Pulse 100 Oximetry 08/25/21 08/25/21 15:51 16:12 Temperature Pulse Rate Respiratory 20 Rate Blood Pressure 115/81 Blood Pressure [Left] O2 Sat by Pulse 96 Oximetry - Reevaluation(s) Reevaluation #1: 08/25/21 07:28 SOB with O2 sat in the 80s on presentation-- patient started on O2 supplement with improvement. Pt resting comfortable during the exam-- will go ahead and order CBC, CMP and CXR for further evaluation for any pulmonary or electrical abnormality or infectious process-- Reevaluation #2: 08/25/21 10:32 On my reevaluation patient reports feeling a little better however she was noted to have elevated BNP at 5966 with no previous history of CHF. Also have elevated D-dimer at 342.92 which is significant for likely PE. So with the above we will go ahead and get a CT scan of the chest to rule out PE and will consider this patient for admission for new heart failure. Reevaluation #3: 08/25/21 14:19 CTA of the chest came back with negative for pulmonary embolism but some vascular edema and small pleural effusion--with this patient elevated BNP this is likely new CHF. I consulted with Dr. Maldonado who accepts patient for further evaluation and treatment at the medical floor. She probably will need to get an echocardiogram for further evaluation of CHF. ED Medical Decision Making - Lab Data Result diagrams: 08/26/21 10:53 08/26/21 10:53 Critical care attestation.: If time is entered above; I have spent that time in minutes in the direct care of this critically ill patient, excluding procedure time. ED Disposition Clinical Impression: Restless leg syndrome, Shortness of breath Heart failure Qualifiers: Heart failure type: other Qualified Code(s): I50.89 - Other heart failure Disposition: ADMITTED INPATIENT Is pt being admited?: No Does the pt Need Aspirin: No Condition: Stable Time of Disposition: 14:20
--- NOTE | 2021-08-25 07:36 | XRay Report ---
CHEST 1 VIEW INDICATION / CLINICAL INFORMATION: SOB. COMPARISON: Chest x-ray 07/09/2021 FINDINGS: SUPPORT DEVICES: None. HEART / MEDIASTINUM: Stable interval appearance of cardiomediastinal silhouette and poststernotomy ch anges. Mitral valve prosthesis stable. Mild cardiomegaly stable. LUNGS / PLEURA: Central vascular prominence stable. Blunting left costophrenic angle stable. Scattere d benign consolidating lung opacities stable. BONES: No significant osseous abnormality. ADDITIONAL FINDINGS: No significant additional findings. IMPRESSION: 1. Small dependent left pleural effusion is not excluded. Minimal residual interstitial pulmonary wolfgang ma suggested. Signer Name: Feliciano Rodriguez II, MD Signed: 08/25/2021 7:31 AM Workstation Name: [id number]
[2021-08-25 07:42] LABS: Hematocrit 38.7 % (30.3-42.9); Hemoglobin 12.3 gm/dl (10.1-14.3); Mean Corpuscular HGB Conc 32 % (30-34); Mean Corpuscular Volume 74 fl (79-97); Platelet Count 197 K/mm3 (140-440); Red Blood Count 5.25 M/mm3 (3.65-5.03)
[2021-08-25 07:51] LABS: INR 0.85 (0.87-1.13)
[2021-08-25 07:52] LABS: Partial Thromboplastin Time 26.2 Sec. (24.2-36.6)
[2021-08-25 08:07] LABS: Albumin 3.6 g/dL (3.9-5); Calcium 8.4 mg/dL (8.4-10.2)
[2021-08-25 08:28] LABS: Bilirubin,Urine NEG (Negative); Blood,Urine NEG (Negative); Color,Urine Colorless (Yellow); Mucus,Urine FEW /HPF; Urobilinogen,Urine < 2.0 mg/dL (<2.0); WBC,Urine < 1.0 /HPF (0.0-6.0)
[2021-08-25 08:33] LABS: Amphetamine Screen,Urine Negative; Benzodiazepines Screen,Urine Negative; Cannabinoid Screen,Urine Negative; Cocaine Screen,Urine Negative; Methadone Screen,Urine Negative; Opiate Screen,Urine Negative
[2021-08-25 09:52] LABS: Band Neutrophils # (Manual) 0.2 K/mm3; Basophils % (Manual) 0 % (0.0-1.8); Eosinophils % (Manual) 0 % (0.0-4.3); Total Cells Counted 100
[2021-08-25] MEDS ORDERED: FUROSEMIDE 40 MG/4 ML INJ IV ONE (09:56)
[2021-08-25 10:01] LABS: Anisocytosis Few; Hypochromasia Few; Ovalocytes Rare; Platelet Estimate Consistent w Auto; Poikilocytosis 1+; Stomatocytes Rare
--- NOTE | 2021-08-25 12:05 | Cat Scan Report ---
CTA CHEST WITH CONTRAST INDICATION / CLINICAL INFORMATION: chest pain with elevated d-dimer. TECHNIQUE: Axial CT images were obtained through the chest after injection of 84 mL Omnipaque 350 IV contrast. 3 plane MIP and/or 3D reconstructions were produced. All CT scans at this location are perf ormed using CT dose reduction for ALARA by means of automated exposure control. COMPARISON: No prior CT for comparison. Chest radiograph earlier on the same date. FINDINGS: PULMONARY EMBOLUS: None. Pulmonary artery is mildly dilated measuring 3.3 cm on axial series 2 image 48. THORACIC AORTA: No significant abnormality. HEART: Mildly enlarged. Mitral valve prosthesis. CORONARY ARTERY CALCIFICATION: Absent -- None. MEDIASTINUM / WILIAM: No significant abnormality. PLEURA: Small, partially loculated left pleural effusion with fluid extending into the left major fis sure. No pneumothorax. LUNGS: No acute airspace disease. Pulmonary emphysema with mosaic attenuation which can be seen in ea rly pulmonary edema. ADDITIONAL FINDINGS: None. UPPER ABDOMEN: Hepatomegaly with hepatic steatosis. SKELETAL STRUCTURES: No significant osseous abnormality. IMPRESSION: 1. No CT evidence for pulmonary embolism. 2. Cardiomegaly with small left pleural effusion and possible early pulmonary edema. Signer Name: Georges Modi MD Signed: 08/25/2021 12:00 PM Workstation Name: [id number]
[2021-08-25] MEDS ORDERED: MORPHINE 2 MG/1 ML INJ IV PRN (14:31)
[2021-08-25] MEDS ORDERED: ACETAMINOPHEN 325 MG TAB PO PRN (14:31)
[2021-08-25] MEDS ORDERED: ONDANSETRON 4 MG/2 ML INJ IV PRN (14:31)
--- NOTE | 2021-08-25 16:22 | History and Physical Report ---
History of Present Illness Date of examination: 08/25/21 Date of admission: 08/25/21 14:31 Chief complaint: Shortness of breath and wheezing for 2 to 3 days History of present illness: 50-year-old female with history of COPD, hypertension, CHF comes in for increasing shortness of breath since last night. Orthopnea present. Oxygen saturations were 81% on room air on presentation to the patient does not smoke. Patient denies CHF 9 0 daily. No fever or chills. No exacerbating or relieving factors. - Past Medical History Hx Hypertension: Yes Hx Heart Attack/AMI: Yes Hx Psychiatric Treatment: Yes Hx COPD: Yes - Surgical History Hx Open Heart Surgery: Yes - Social History Smoking Status: Current Every Day Smoker - Medications Home Medications: Home Medications Medication Instructions Recorded Confirmed Last Taken Type Albuterol Mdi (or & Nicu Only) 2 puff IH QID PRN #8.5 gram 04/15/21 Unknown Rx [ProAir HFA Inhaler] Azithromycin [Zithromax TAB] 500 mg PO QDAY 2 Days #2 tab 07/03/21 Unknown Rx Budesonide [Pulmicort Flexhaler] 180 mcg IH BID #2 inh 07/03/21 Unknown Rx Fluticasone/Salmeterol [Advair 2 puff IH BID 30 Days #2 inh 07/03/21 Unknown Rx Diskus 250-50 mcg] Ipratropium (Nf) [Atrovent] 2 puff IH Q6HR 30 Days #3 inha 07/03/21 Unknown Rx amLODIPine 10 mg PO DAILY 30 Days #30 tab 07/03/21 Unknown Rx lisinopriL [Zestril TAB] 40 mg PO QDAY 30 Days #30 tab 07/03/21 Unknown Rx predniSONE [Deltasone] 40 mg PO QDAY 3 Days #3 tab 07/03/21 Unknown Rx Gabapentin 100 mg PO BID 30 Days #60 capsule 07/10/21 Unknown Rx OLANzapine [ZyPREXA] 5 mg PO QHS 30 Days #30 tablet 07/10/21 Unknown Rx Magnesium Hydroxide [Milk of 400 mg PO DAILY #1 bottle 08/03/21 Unknown Rx Magnesia] Review of Systems ROS: Stated complaint: BREATH Other details as noted in HPI Comment: All other systems reviewed and negative Respiratory: cough, shortness of breath, SOB at rest Musculoskeletal: myalgia, other (Restless leg syndrome) Psychiatric: anxiety Medications and Allergies Allergies Allergy/AdvReac Type Severity Reaction Status Date / Time No Known Allergies Allergy Verified 08/02/21 19:54 Home Medications Medication Instructions Recorded Confirmed Last Taken Type Albuterol Mdi (or & Nicu Only) 2 puff IH QID PRN #8.5 gram 04/15/21 Unknown Rx [ProAir HFA Inhaler] Azithromycin [Zithromax TAB] 500 mg PO QDAY 2 Days #2 tab 07/03/21 Unknown Rx Budesonide [Pulmicort Flexhaler] 180 mcg IH BID #2 inh 07/03/21 Unknown Rx Fluticasone/Salmeterol [Advair 2 puff IH BID 30 Days #2 inh 07/03/21 Unknown Rx Diskus 250-50 mcg] Ipratropium (Nf) [Atrovent] 2 puff IH Q6HR 30 Days #3 inha 07/03/21 Unknown Rx amLODIPine 10 mg PO DAILY 30 Days #30 tab 07/03/21 Unknown Rx lisinopriL [Zestril TAB] 40 mg PO QDAY 30 Days #30 tab 07/03/21 Unknown Rx predniSONE [Deltasone] 40 mg PO QDAY 3 Days #3 tab 07/03/21 Unknown Rx Gabapentin 100 mg PO BID 30 Days #60 capsule 07/10/21 Unknown Rx OLANzapine [ZyPREXA] 5 mg PO QHS 30 Days #30 tablet 07/10/21 Unknown Rx Magnesium Hydroxide [Milk of 400 mg PO DAILY #1 bottle 08/03/21 Unknown Rx Magnesia] Active Meds: Active Medications Acetaminophen (Acetaminophen 325 Mg Tab) 650 mg PO Q4H PRN PRN Reason: Pain MILD(1-3)/Fever >100.5/SALAZAR Morphine Sulfate (Morphine 2 Mg/1 Ml Inj) 2 mg IV Q4H PRN PRN Reason: Pain, Moderate (4-6) Ondansetron HCl (Ondansetron 4 Mg/2 Ml Inj) 4 mg IV Q8H PRN PRN Reason: Nausea And Vomiting Sodium Chloride (Sodium Chloride 0.9% 10 Ml Flush Syringe) 10 ml IV BID JUAQUIN Last Admin: 08/25/21 15:09 Dose: 10 ml Sodium Chloride (Sodium Chloride 0.9% 10 Ml Flush Syringe) 10 ml IV PRN PRN PRN Reason: LINE FLUSH Exam - Constitutional Vitals: Temp Pulse Resp BP Pulse Ox 98.6 F 66 16 115/81 100 08/25/21 04:48 08/25/21 15:24 08/25/21 15:24 08/25/21 15:51 08/25/21 15:24 General appearance: Present: mild distress, well-nourished - EENT Eyes: Present: PERRL ENT: hearing intact, clear oral mucosa - Neck Neck: Present: supple, normal ROM - Respiratory Respiratory effort: normal Respiratory: bilateral: diminished, rhonchi, wheezing - Cardiovascular Heart rate: 88 Rhythm: regular Heart Sounds: Present: S1 & S2. Absent: rub, click - Extremities Extremities: pulses symmetrical, No edema Peripheral Pulses: within normal limits - Abdominal General gastrointestinal: Present: soft, non-tender, non-distended, normal bowel sounds Female genitourinary: Present: normal - Integumentary Integumentary: Present: clear, warm, dry - Musculoskeletal Musculoskeletal: gait normal, strength equal bilaterally - Psychiatric Psychiatric: appropriate mood/affect, intact judgment & insight - Neurologic Neurologic: CNII-XII intact, moves all extremities HEART Score - HEART Score History: Moderately suspicious Age: 45-65 Risk factors: 1-2 risk factors Troponin: < normal limit - Critical Actions Critical Actions: 4-6 pts:12-16.6% risk of adverse cardiac event. Should be admitted Results - Labs CBC & Chem 7: 08/25/21 07:28 08/25/21 07:28 Labs: Laboratory Last Values WBC 19.0 K/mm3 (4.5-11.0) H 08/25/21 07:28 RBC 5.25 M/mm3 (3.65-5.03) H 08/25/21 07:28 Hgb 12.3 gm/dl (10.1-14.3) 08/25/21 07:28 Hct 38.7 % (30.3-42.9) 08/25/21 07:28 MCV 74 fl (79-97) L 08/25/21 07:28 MCH 23 pg (28-32) L 08/25/21 07:28 MCHC 32 % (30-34) 08/25/21 07:28 RDW 18.0 % (13.2-15.2) H 08/25/21 07:28 Plt Count 197 K/mm3 (140-440) 08/25/21 07:28 Add Manual Diff Complete 08/25/21 07:28 Total Counted 100 08/25/21 07:28 Seg Neuts % (Manual) 92.0 % (40.0-70.0) H 08/25/21 07:28 Band Neutrophils % 1.0 % 08/25/21 07:28 Lymphocytes % (Manual) 3.0 % (13.4-35.0) L 08/25/21 07:28 Reactive Lymphs % (Man) 0 % 08/25/21 07:28 Monocytes % (Manual) 4.0 % (0.0-7.3) 08/25/21 07:28 Eosinophils % (Manual) 0 % (0.0-4.3) 08/25/21 07:28 Basophils % (Manual) 0 % (0.0-1.8) 08/25/21 07:28 Metamyelocytes % 0 % 08/25/21 07:28 Myelocytes % 0 % 08/25/21 07:28 Promyelocytes % 0 % 08/25/21 07:28 Blast Cells % 0 % 08/25/21 07:28 Nucleated RBC % Not Reportable 08/25/21 07:28 Seg Neutrophils # Man 17.5 K/mm3 (1.8-7.7) H 08/25/21 07:28 Band Neutrophils # 0.2 K/mm3 08/25/21 07:28 Lymphocytes # (Manual) 0.6 K/mm3 (1.2-5.4) L 08/25/21 07:28 Abs React Lymphs (Man) 0.0 K/mm3 08/25/21 07:28 Monocytes # (Manual) 0.8 K/mm3 (0.0-0.8) 08/25/21 07:28 Eosinophils # (Manual) 0.0 K/mm3 (0.0-0.4) 08/25/21 07:28 Basophils # (Manual) 0.0 K/mm3 (0.0-0.1) 08/25/21 07:28 Metamyelocytes # 0.0 K/mm3 08/25/21 07:28 Myelocytes # 0.0 K/mm3 08/25/21 07:28 Promyelocytes # 0.0 K/mm3 08/25/21 07:28 Blast Cells # 0.0 K/mm3 08/25/21 07:28 WBC Morphology Not Reportable 08/25/21 07:28 Hypersegmented Neuts Not Reportable 08/25/21 07:28 Hyposegmented Neuts Not Reportable 08/25/21 07:28 Hypogranular Neuts Not Reportable 08/25/21 07:28 Smudge Cells Not Reportable 08/25/21 07:28 Toxic Granulation Not Reportable 08/25/21 07:28 Toxic Vacuolation Not Reportable 08/25/21 07:28 Dohle Bodies Not Reportable 08/25/21 07:28 Pelger-Huet Anomaly Not Reportable 08/25/21 07:28 Lis Rods Not Reportable 08/25/21 07:28 Platelet Estimate Consistent w auto 08/25/21 07:28 Clumped Platelets Not Reportable 08/25/21 07:28 Plt Clumps, EDTA Not Reportable 08/25/21 07:28 Large Platelets Not Reportable 08/25/21 07:28 Giant Platelets Not Reportable 08/25/21 07:28 Platelet Satelliting Not Reportable 08/25/21 07:28 Plt Morphology Comment Not Reportable 08/25/21 07:28 RBC Morphology Not Reportable 08/25/21 07:28 Dimorphic RBCs Not Reportable 08/25/21 07:28 Polychromasia Not Reportable 08/25/21 07:28 Hypochromasia Few 08/25/21 07:28 Poikilocytosis 1+ 08/25/21 07:28 Anisocytosis Few 08/25/21 07:28 Microcytosis Not Reportable 08/25/21 07:28 Macrocytosis Not Reportable 08/25/21 07:28 Spherocytes Not Reportable 08/25/21 07:28 Pappenheimer Bodies Not Reportable 08/25/21 07:28 Sickle Cells Not Reportable 08/25/21 07:28 Target Cells Not Reportable 08/25/21 07:28 Tear Drop Cells Not Reportable 08/25/21 07:28 Ovalocytes Rare 08/25/21 07:28 Stomatocytes Rare 08/25/21 07:28 Helmet Cells Not Reportable 08/25/21 07:28 Garcia-Texline Bodies Not Reportable 08/25/21 07:28 [place] Rings Not Reportable 08/25/21 07:28 [place] Cells Not Reportable 08/25/21 07:28 Bite Cells Not Reportable 08/25/21 07:28 Crenated Cell Not Reportable 08/25/21 07:28 Elliptocytes Few 08/25/21 07:28 Acanthocytes (Spur) Not Reportable 08/25/21 07:28 Rouleaux Not Reportable 08/25/21 07:28 Hemoglobin C Crystals Not Reportable 08/25/21 07:28 Schistocytes Not Reportable 08/25/21 07:28 Malaria parasites Not Reportable 08/25/21 07:28 Apolinar Bodies Not Reportable 08/25/21 07:28 Hem Pathologist Commnt No 08/25/21 07:28 PT 12.5 Sec. (12.2-14.9) 08/25/21 07:28 INR 0.85 (0.87-1.13) L 08/25/21 07:28 APTT 26.2 Sec. (24.2-36.6) 08/25/21 07:28 D-Dimer 342.92 ng/mlDDU (0-234) H 08/25/21 07:28 Sodium 135 mmol/L (137-145) L 08/25/21 07:28 Potassium 4.2 mmol/L (3.6-5.0) 08/25/21 07:28 Chloride 93.8 mmol/L (98-107) L 08/25/21 07:28 Carbon Dioxide 30 mmol/L (22-30) 08/25/21 07:28 Anion Gap 15 mmol/L 08/25/21 07:28 BUN 19 mg/dL (7-17) H 08/25/21 07:28 Creatinine 1.1 mg/dL (0.6-1.2) 08/25/21 07:28 Estimated GFR 53 ml/min 08/25/21 07:28 BUN/Creatinine Ratio 17 % 08/25/21 07:28 Glucose 126 mg/dL (65-100) H 08/25/21 07:28 Calcium 8.4 mg/dL (8.4-10.2) 08/25/21 07:28 Total Bilirubin 0.80 mg/dL (0.1-1.2) 08/25/21 07:28 AST 14 units/L (5-40) 08/25/21 07:28 ALT 23 units/L (7-56) 08/25/21 07:28 Alkaline Phosphatase 66 units/L (35-129) 08/25/21 07:28 NT-Pro-B Natriuret Pep 5966 pg/mL (0-450) H 08/25/21 07:28 Total Protein 5.7 g/dL (6.3-8.2) L 08/25/21 07:28 Albumin 3.6 g/dL (3.9-5) L 08/25/21 07:28 Albumin/Globulin Ratio 1.7 % 08/25/21 07:28 TSH 1.040 mlU/mL (0.270-4.200) 08/25/21 07:28 Urine Color Colorless (Yellow) 08/25/21 07:53 Urine Turbidity Clear (Clear) 08/25/21 07:53 Urine pH 7.0 (5.0-7.0) 08/25/21 07:53 Ur Specific [place] 1.003 (1.003-1.030) 08/25/21 07:53 Urine Protein 100 mg/dl mg/dL (Negative) 08/25/21 07:53 Urine Glucose (UA) Neg mg/dL (Negative) 08/25/21 07:53 Urine Ketones Neg mg/dL (Negative) 08/25/21 07:53 Urine Blood Neg (Negative) 08/25/21 07:53 Urine Nitrite Neg (Negative) 08/25/21 07:53 Urine Bilirubin Neg (Negative) 08/25/21 07:53 Urine Urobilinogen < 2.0 mg/dL (<2.0) 08/25/21 07:53 Ur Leukocyte Esterase Neg (Negative) 08/25/21 07:53 Urine WBC (Auto) < 1.0 /HPF (0.0-6.0) 08/25/21 07:53 Urine RBC (Auto) 1.0 /HPF (0.0-6.0) 08/25/21 07:53 U Epithel Cells (Auto) 4.0 /HPF (0-13.0) 08/25/21 07:53 Urine Mucus Few /HPF 08/25/21 07:53 Urine Opiates Screen Negative 08/25/21 07:53 Urine Methadone Screen Negative 08/25/21 07:53 Ur Barbiturates Screen Negative 08/25/21 07:53 Ur Phencyclidine Scrn Negative 08/25/21 07:53 Ur Amphetamines Screen Negative 08/25/21 07:53 U Benzodiazepines Scrn Negative 08/25/21 07:53 Urine Cocaine Screen Negative 08/25/21 07:53 U Marijuana (THC) Screen Negative 08/25/21 07:53 Drugs of Abuse Note Disclamer 08/25/21 07:53 Short CBC 08/25/21 Range/Units 07:28 WBC 19.0 H (4.5-11.0) K/mm3 Hgb 12.3 (10.1-14.3) gm/dl Hct 38.7 (30.3-42.9) % Plt Count 197 (140-440) K/mm3 BMP 08/25/21 07:28 Sodium 135 L Potassium 4.2 Chloride 93.8 L Carbon Dioxide 30 BUN 19 H Creatinine 1.1 Glucose 126 H Calcium 8.4 Liver Function 08/25/21 Range/Units 07:28 Total Bilirubin 0.80 (0.1-1.2) mg/dL AST 14 (5-40) units/L ALT 23 (7-56) units/L Alkaline Phosphatase 66 (35-129) units/L Albumin 3.6 L (3.9-5) g/dL Urine 08/25/21 Range/Units 07:53 Urine Color Colorless (Yellow) Urine pH 7.0 (5.0-7.0) Ur Specific [place] 1.003 (1.003-1.030) Urine Protein 100 mg/dl (Negative) mg/dL Urine Glucose (UA) Neg (Negative) mg/dL - Imaging and Cardiology Chest x-ray: report reviewed Imaging and Cardiology: Chest x-ray Small dependent left pleural effusion Minimal residual interstitial pulmonary edema suggested CTA no CT evidence of pulmonary embolism Cardiomegaly with small left pleural effusion and possible early pulmonary edema Assessment and Plan Advance Directives: Yes (Full code) VTE prophylaxis?: Chemical Plan of care discussed with patient/family: Yes - Patient Problems (1) Acute respiratory failure with hypoxia Current Visit: Yes Status: Acute Plan to address problem: Multifactorial CHF and COPD exacerbation (2) Acute exacerbation of CHF (congestive heart failure) Current Visit: Yes Status: Acute Plan to address problem: IV Lasix and Aldactone Echocardiogram for ejection fraction Cardiology consult if necessary (3) Acute exacerbation of chronic obstructive pulmonary disease (COPD) Current Visit: No Status: Acute Plan to address problem: IV steroids, nebulizer treatments [id number] and as needed and IV Solu- Medrol ( (4) DVT prophylaxis Current Visit: No Status: Acute Plan to address problem: On anticoagulation GI prophylaxis (5) Advance care planning Current Visit: Yes Status: Acute Plan to address problem: Disease education conducted, care plan discussed, diagnosis prognosis discussed. Patient is full code. Patient acknowledged understanding and agreement with care plan. +30 minutes.
[2021-08-26] MEDS ORDERED: dilTIAZem 25 MG/5 ML INJ IV ONE (06:08)
[2021-08-26] MEDS: predniSONE 20 MG TAB PO SCH (09:22)
[2021-08-26] MEDS: cefTRIAXone/NS 1 GM/50 ML 1 GM/50 ML BAG IV SCH (09:23)
[2021-08-26] MEDS: AZITHROMYCIN 250 MG TAB PO SCH (09:23)
--- NOTE | 2021-08-26 09:50 | Electrocardiograph Report ---
[facility] Test Date: 2021-08-26 Test Time: 07:40:47 Pat Name: SILAS HOLLIDAY Department: Room: A475 1 Gender: F Roll Cutter: MEDARDO : 1970 Requested By: HAVEN RAUSCH Order Number: [id number] Reading MD: Keaton Gutierrez Measurements Intervals [place] Rate: 108 P: 54 [place]: 119 QRS: 58 QRSD: 81 T: QT: 337 QTc: 452 Interpretive Statements Sinus tachycardia Inferior infarct, age undetermined Compared to ECG 07/03/2021 05:51:54 No significant Electronically Signed On 08-26-2021 9:49:54 EDT by Keaton Gutierrez
[2021-08-26 11:24] LABS: Hematocrit 38.5 % (30.3-42.9); Mean Corpuscular HGB Conc 31 % (30-34); Mean Corpuscular Volume 75 fl (79-97); Platelet Count 184 K/mm3 (140-440); Red Blood Count 5.14 M/mm3 (3.65-5.03); Red Cell Distribution Width 18.2 % (13.2-15.2)
[2021-08-26 11:45] LABS: Calcium 8.4 mg/dL (8.4-10.2)
[2021-08-26] MEDS ORDERED: ALBUTEROL 2.5 MG/3 ML NEBU IH PRN (13:57)
--- NOTE | 2021-08-26 13:57 | Progress Note ---
Assessment and Plan Assessment and plan: #Acute hypoxic respiratory failure - etiology: Likely secondary to COPD exacerbation + heart failure - baseline oxygen requirements: Room air - supplemental oxygen: 2 L nasal cannula Pending coronavirus PCR and procalcitonin - Continue protocol: continue pulse oximetry, wean oxygen as tolerated, ordered incentive spirometry and educated patient on how to use it and its importance. - Walk test: We will perform should patient appear to require home oxygen - continue to monitor #Acute on chronic heart failure - Continue CHF exacerbation protocol: Telemetry, Strict I/O, monitor urine output every shift, daily weights, afterload reduction, low-sodium diet, and fluid restriction of approximately 1.5 mL/day, p.o. Lasix 40 mg daily - Supplemental oxygen: 2 L nasal cannula - ProBNP on admission: 5966 - Pending TTE to evaluate cardiac function/EF - Continue to monitor #Acute on chronic COPD exacerbation Patient endorses continued tobacco/smoking Patient endorses compliance with medications CXR interpreted by hospitalist: Increased cardiac silhouette, increased interstitial markings, loss of left costophrenic angle Starting p.o. azithromycin 500 mg daily and Rocephin 1 g daily and prednisone 40 mg daily Wean nasal cannula as tolerated. Continue DuoNebs. #Tobacco dependence #Tobacco/Smoking cessation counseling - Counseled patient about the importance of smoking cessation and the possible sequelae as a result of continued tobacco consumption. The patient expresses understanding. -Time: +15 mins #Obesity #Weight loss counseling #Exercise counseling - BMI 30.3 - Counseled patient on the importance of weight loss, incorporating exercise, and dietary changes (lean meats, fresh fruits and vegetables, and water intake). Patient expresses understanding. - Time: +15 min #Advanced care planning -Disease education conducted, care plan discussed, diagnoses discussed, prognosis discussed, and patient acknowledges understanding with care plan -Time: +30 min Disposition Plan: Continue medical management Total Time Spent with Patient (Minutes): 45 minutes History Interval history: No acute events overnight. Hospitalist Physical - Constitutional Vitals: Temp Pulse Resp BP Pulse Ox 98.6 F 114 H 18 130/88 95 08/26/21 12:02 08/26/21 12:02 08/26/21 12:02 08/26/21 12:02 08/26/21 12:02 General appearance: Present: no acute distress, well-nourished, obese - EENT Eyes: Present: PERRL, EOM intact ENT: hearing intact, clear oral mucosa, dentition normal - Neck Neck: Present: supple, normal ROM - Respiratory Respiratory effort: normal Respiratory: bilateral: diminished (On 2 L nasal cannula) - Cardiovascular Rhythm: regular Heart Sounds: Present: S1 & S2 - Extremities Extremities: no ischemia, pulses intact, pulses symmetrical, No edema, normal temperature, normal color Peripheral Pulses: within normal limits - Abdominal General gastrointestinal: soft, non-tender, non-distended, normal bowel sounds - Integumentary Integumentary: Present: clear, warm, dry - Psychiatric Psychiatric: appropriate mood/affect, intact judgment & insight, memory intact, cooperative - Neurologic Neurologic: CNII-XII intact, moves all extremities - Allied Health Allied health notes reviewed: nursing HEART Score - HEART Score Age: 45-65 Risk factors: 1-2 risk factors Troponin: < normal limit - Critical Actions Critical Actions: 4-6 pts:12-16.6% risk of adverse cardiac event. Should be admitted Results - Labs CBC & Chem 7: 08/26/21 10:53 08/26/21 10:53 Labs: Laboratory Last Values WBC 12.4 K/mm3 (4.5-11.0) H 08/26/21 10:53 RBC 5.14 M/mm3 (3.65-5.03) H 08/26/21 10:53 Hgb 12.0 gm/dl (10.1-14.3) 08/26/21 10:53 Hct 38.5 % (30.3-42.9) 08/26/21 10:53 MCV 75 fl (79-97) L 08/26/21 10:53 MCH 23 pg (28-32) L 08/26/21 10:53 MCHC 31 % (30-34) 08/26/21 10:53 RDW 18.2 % (13.2-15.2) H 08/26/21 10:53 Plt Count 184 K/mm3 (140-440) 08/26/21 10:53 Add Manual Diff Complete 08/25/21 07:28 Total Counted 100 08/25/21 07:28 Seg Neuts % (Manual) 92.0 % (40.0-70.0) H 08/25/21 07:28 Band Neutrophils % 1.0 % 08/25/21 07:28 Lymphocytes % (Manual) 3.0 % (13.4-35.0) L 08/25/21 07:28 Reactive Lymphs % (Man) 0 % 08/25/21 07:28 Monocytes % (Manual) 4.0 % (0.0-7.3) 08/25/21 07:28 Eosinophils % (Manual) 0 % (0.0-4.3) 08/25/21 07:28 Basophils % (Manual) 0 % (0.0-1.8) 08/25/21 07:28 Metamyelocytes % 0 % 08/25/21 07:28 Myelocytes % 0 % 08/25/21 07:28 Promyelocytes % 0 % 08/25/21 07:28 Blast Cells % 0 % 08/25/21 07:28 Nucleated RBC % Not Reportable 08/25/21 07:28 Seg Neutrophils # Man 17.5 K/mm3 (1.8-7.7) H 08/25/21 07:28 Band Neutrophils # 0.2 K/mm3 08/25/21 07:28 Lymphocytes # (Manual) 0.6 K/mm3 (1.2-5.4) L 08/25/21 07:28 Abs React Lymphs (Man) 0.0 K/mm3 08/25/21 07:28 Monocytes # (Manual) 0.8 K/mm3 (0.0-0.8) 08/25/21 07:28 Eosinophils # (Manual) 0.0 K/mm3 (0.0-0.4) 08/25/21 07:28 Basophils # (Manual) 0.0 K/mm3 (0.0-0.1) 08/25/21 07:28 Metamyelocytes # 0.0 K/mm3 08/25/21 07:28 Myelocytes # 0.0 K/mm3 08/25/21 07:28 Promyelocytes # 0.0 K/mm3 08/25/21 07:28 Blast Cells # 0.0 K/mm3 08/25/21 07:28 WBC Morphology Not Reportable 08/25/21 07:28 Hypersegmented Neuts Not Reportable 08/25/21 07:28 Hyposegmented Neuts Not Reportable 08/25/21 07:28 Hypogranular Neuts Not Reportable 08/25/21 07:28 Smudge Cells Not Reportable 08/25/21 07:28 Toxic Granulation Not Reportable 08/25/21 07:28 Toxic Vacuolation Not Reportable 08/25/21 07:28 Dohle Bodies Not Reportable 08/25/21 07:28 Pelger-Huet Anomaly Not Reportable 08/25/21 07:28 Lis Rods Not Reportable 08/25/21 07:28 Platelet Estimate Consistent w auto 08/25/21 07:28 Clumped Platelets Not Reportable 08/25/21 07:28 Plt Clumps, EDTA Not Reportable 08/25/21 07:28 Large Platelets Not Reportable 08/25/21 07:28 Giant Platelets Not Reportable 08/25/21 07:28 Platelet Satelliting Not Reportable 08/25/21 07:28 Plt Morphology Comment Not Reportable 08/25/21 07:28 RBC Morphology Not Reportable 08/25/21 07:28 Dimorphic RBCs Not Reportable 08/25/21 07:28 Polychromasia Not Reportable 08/25/21 07:28 Hypochromasia Few 08/25/21 07:28 Poikilocytosis 1+ 08/25/21 07:28 Anisocytosis Few 08/25/21 07:28 Microcytosis Not Reportable 08/25/21 07:28 Macrocytosis Not Reportable 08/25/21 07:28 Spherocytes Not Reportable 08/25/21 07:28 Pappenheimer Bodies Not Reportable 08/25/21 07:28 Sickle Cells Not Reportable 08/25/21 07:28 Target Cells Not Reportable 08/25/21 07:28 Tear Drop Cells Not Reportable 08/25/21 07:28 Ovalocytes Rare 08/25/21 07:28 Stomatocytes Rare 08/25/21 07:28 Helmet Cells Not Reportable 08/25/21 07:28 Garcia-[place] Bodies Not Reportable 08/25/21 07:28 [place] Rings Not Reportable 08/25/21 07:28 [place] Cells Not Reportable 08/25/21 07:28 Bite Cells Not Reportable 08/25/21 07:28 Crenated Cell Not Reportable 08/25/21 07:28 Elliptocytes Few 08/25/21 07:28 Acanthocytes (Spur) Not Reportable 08/25/21 07:28 Rouleaux Not Reportable 08/25/21 07:28 Hemoglobin C Crystals Not Reportable 08/25/21 07:28 Schistocytes Not Reportable 08/25/21 07:28 Malaria parasites Not Reportable 08/25/21 07:28 Apolinar Bodies Not Reportable 08/25/21 07:28 Hem Pathologist Commnt No 08/25/21 07:28 PT 12.5 Sec. (12.2-14.9) 08/25/21 07:28 INR 0.85 (0.87-1.13) L 08/25/21 07:28 APTT 26.2 Sec. (24.2-36.6) 08/25/21 07:28 D-Dimer 342.92 ng/mlDDU (0-234) H 08/25/21 07:28 Sodium 137 mmol/L (137-145) 08/26/21 10:53 Potassium 4.8 mmol/L (3.6-5.0) 08/26/21 10:53 Chloride 94.6 mmol/L (98-107) L 08/26/21 10:53 Carbon Dioxide 35 mmol/L (22-30) H 08/26/21 10:53 Anion Gap 12 mmol/L 08/26/21 10:53 BUN 18 mg/dL (7-17) H 08/26/21 10:53 Creatinine 1.0 mg/dL (0.6-1.2) 08/26/21 10:53 Estimated GFR 59 ml/min 08/26/21 10:53 BUN/Creatinine Ratio 18 % 08/26/21 10:53 Glucose 142 mg/dL (65-100) H 08/26/21 10:53 Calcium 8.4 mg/dL (8.4-10.2) 08/26/21 10:53 Total Bilirubin 0.80 mg/dL (0.1-1.2) 08/25/21 07:28 AST 14 units/L (5-40) 08/25/21 07:28 ALT 23 units/L (7-56) 08/25/21 07:28 Alkaline Phosphatase 66 units/L (35-129) 08/25/21 07:28 NT-Pro-B Natriuret Pep 5966 pg/mL (0-450) H 08/25/21 07:28 Total Protein 5.7 g/dL (6.3-8.2) L 08/25/21 07:28 Albumin 3.6 g/dL (3.9-5) L 08/25/21 07:28 Albumin/Globulin Ratio 1.7 % 08/25/21 07:28 Procalcitonin 0.10 ng/mL (<0.15) 08/26/21 10:53 TSH 1.040 mlU/mL (0.270-4.200) 08/25/21 07:28 Urine Color Colorless (Yellow) 08/25/21 07:53 Urine Turbidity Clear (Clear) 08/25/21 07:53 Urine pH 7.0 (5.0-7.0) 08/25/21 07:53 Ur Specific [place] 1.003 (1.003-1.030) 08/25/21 07:53 Urine Protein 100 mg/dl mg/dL (Negative) 08/25/21 07:53 Urine Glucose (UA) Neg mg/dL (Negative) 08/25/21 07:53 Urine Ketones Neg mg/dL (Negative) 08/25/21 07:53 Urine Blood Neg (Negative) 08/25/21 07:53 Urine Nitrite Neg (Negative) 08/25/21 07:53 Urine Bilirubin Neg (Negative) 08/25/21 07:53 Urine Urobilinogen < 2.0 mg/dL (<2.0) 08/25/21 07:53 Ur Leukocyte Esterase Neg (Negative) 08/25/21 07:53 Urine WBC (Auto) < 1.0 /HPF (0.0-6.0) 08/25/21 07:53 Urine RBC (Auto) 1.0 /HPF (0.0-6.0) 08/25/21 07:53 U Epithel Cells (Auto) 4.0 /HPF (0-13.0) 08/25/21 07:53 Urine Mucus Few /HPF 08/25/21 07:53 Urine Opiates Screen Negative 08/25/21 07:53 Urine Methadone Screen Negative 08/25/21 07:53 Ur Barbiturates Screen Negative 08/25/21 07:53 Ur Phencyclidine Scrn Negative 08/25/21 07:53 Ur Amphetamines Screen Negative 08/25/21 07:53 U Benzodiazepines Scrn Negative 08/25/21 07:53 Urine Cocaine Screen Negative 08/25/21 07:53 U Marijuana (THC) Screen Negative 08/25/21 07:53 Drugs of Abuse Note Disclamer 08/25/21 07:53 French/IV: Voiding Method Toilet Active Medications - Current Medications Current Medications: Generic Name Dose Route Start Last Admin Trade Name Freq PRN Reason Stop Dose Admin Acetaminophen 650 mg 08/25/21 14:31 Acetaminophen 325 Mg Tab PO Q4H PRN Pain MILD(1-3)/Fever >100.5/SALAZAR Azithromycin 500 mg 08/26/21 10:00 08/26/21 09:23 Azithromycin 250 Mg Tab PO 08/30/21 10:01 500 mg QDAY JUAQUIN Administration Protocol Furosemide 40 mg 08/26/21 18:00 Furosemide 40 Mg Tab PO 0600,1800 JUAQUIN Ceftriaxone Sodium 1 gm in 50 mls @ 100 mls/hr 08/26/21 09:00 08/26/21 09:23 Rocephin/Ns 1 Gm/50 Ml IV 08/31/21 08:59 100 mls/hr Q24H JUAQUIN Administration Protocol Morphine Sulfate 2 mg 08/25/21 14:31 Morphine 2 Mg/1 Ml Inj IV Q4H PRN Pain, Moderate (4-6) Ondansetron HCl 4 mg 08/25/21 14:31 Ondansetron 4 Mg/2 Ml Inj IV Q8H PRN Nausea And Vomiting Prednisone 40 mg 08/26/21 10:00 08/26/21 09:22 Prednisone 20 Mg Tab PO 08/30/21 10:01 40 mg QDAY JUAQUIN Administration Sodium Chloride 10 ml 08/25/21 15:00 08/26/21 09:23 Sodium Chloride 0.9% 10 Ml Flush Syringe IV 10 ml BID JUAQUIN Administration Sodium Chloride 10 ml 08/25/21 14:31 Sodium Chloride 0.9% 10 Ml Flush Syringe IV PRN PRN LINE FLUSH
[2021-08-26] MEDS: IPRATROPIUM/ALBUTEROL SULFATE 3 ML AMPUL.NEB IH SCH ×2 (17:16→21:49)
[2021-08-26] MEDS: FUROSEMIDE 40 MG TAB PO SCH (17:53)
[2021-08-26] MEDS ORDERED: FUROSEMIDE 40 MG/4 ML INJ IV SCH (18:00)
[2021-08-27 05:55] LABS: Basophils # (Auto) 0.1 K/mm3 (0.0-0.1); Basophils % (Auto) 0.9 % (0.0-1.8); Eosinophils % (Auto) 0.1 % (0.0-4.3); Hematocrit 38.7 % (30.3-42.9); Lymphocytes # (Auto) 1.2 K/mm3 (1.2-5.4); Mean Corpuscular HGB Conc 31 % (30-34); Mean Corpuscular Volume 74 fl (79-97); Monocytes # (Auto) 0.8 K/mm3 (0.0-0.8); Monocytes % (Auto) 6.9 % (0.0-7.3); Platelet Count 198 K/mm3 (140-440); Red Cell Distribution Width 18.2 % (13.2-15.2)
[2021-08-27 06:08] LABS: BUN/Creatinine Ratio 26; Blood Urea Nitrogen 23 mg/dL (7-17); Calcium 8.2 mg/dL (8.4-10.2); Hemolysis Index 7
[2021-08-27] MEDS: FUROSEMIDE 40 MG TAB PO SCH (08:25)
[2021-08-27] MEDS: predniSONE 20 MG TAB PO SCH (09:10)
[2021-08-27] MEDS: AZITHROMYCIN 250 MG TAB PO SCH (09:10)
[2021-08-27] MEDS: cefTRIAXone/NS 1 GM/50 ML 1 GM/50 ML BAG IV SCH (09:10)
[2021-08-27] MEDS: IPRATROPIUM/ALBUTEROL SULFATE 3 ML AMPUL.NEB IH SCH ×3 (09:40→16:41)
[2021-08-27] MEDS ORDERED: FUROSEMIDE 40 MG TAB PO SCH (10:00)
--- NOTE | 2021-08-27 11:19 | Discharge Summary ---
Providers - Providers Date of Admission: 08/25/21 14:31 Date of discharge: 08/27/21 Attending physician: MERVIN WASHINGTON MD 08/27/21 09:06 Consult to Case Management [CONS] Routine Services Needed at Discharge: Other Comment:: Transportation home Primary care physician: SIZE MIXER Hospitalization Reason for admission: Acute hypoxic respiratory failure, COPD exacerbation, heart failure exacerb Condition: Stable Pertinent studies: Reviewed. Procedures: None. Hospital course: Patient is a 50-year-old female with past medical history of COPD, tobacco dependence, hypertension, chronic diastolic heart failure, and obesity who presented with increasing shortness of breath that had initiated the night before. On presentation, the patient was hypoxic to 81% on room air requiring supplemental oxygen. Her labs were remarkable for proBNP of 5966. Due to concerns for possible COPD exacerbation, the patient was initiated on steroids, azithromycin, and Rocephin. Patient was initiated on IV diuretics for heart failure management. TTE was performed and revealed an EF of 55 to 60%, normal LV size, normal LV systolic function, mild concentric LVH, moderate diastolic dysfunction, moderately hypokinetic RV, severely dilated LA. The patient was successfully weaned off of supplemental oxygen and IV diuretics. The patient received breathing treatments during her hospitalization. Patient was also counseled about the importance of tobacco cessation given her COPD, the patient expresses understanding. The patient is medically clear for discharge. She will follow-up with her PCP. Disposition: 01 HOME / SELF CARE / HOMELESS Final Discharge Diagnosis (Prints w/discharge instructions): Acute hypoxic respiratory failure, acute on chronic diastolic heart failure, acute on chronic COPD exacerbation, tobacco dependence, obesity. Time spent for discharge: 45 min Core Measure Documentation - Palliative Care Palliative Care/ Comfort Measures: Not Applicable - Core Measures Any of the following diagnoses?: heart failure - Heart Failure Discharge Requirements ARLETH/ARB for LVSD if EF <40%: Not Applicable Beta tyrone at discharge: No Reason for no beta tyrone on DC: COPD Exam - Constitutional Vitals: Temp Pulse Resp BP Pulse Ox 97.6 F 90 20 117/87 90 08/27/21 08:02 08/27/21 09:00 08/27/21 09:00 08/27/21 08:02 08/27/21 09:00 General appearance: Present: no acute distress, well-nourished, obese, disheveled - EENT Eyes: Present: PERRL, EOM intact ENT: hearing intact, clear oral mucosa - Neck Neck: Present: supple, normal ROM - Respiratory Respiratory effort: normal Respiratory: bilateral: CTA - Cardiovascular Rhythm: regular Heart Sounds: Present: S1 & S2 - Extremities Extremities: no ischemia, pulses intact, pulses symmetrical, No edema, normal temperature, normal color, Full ROM Peripheral Pulses: within normal limits - Abdominal General gastrointestinal: Present: soft, non-tender, non-distended, normal bowel sounds Female genitourinary: Present: deferred - Rectal Rectal Exam: deferred - Integumentary Integumentary: Present: clear, warm, dry - Musculoskeletal Musculoskeletal: strength equal bilaterally - Psychiatric Psychiatric: appropriate mood/affect, intact judgment & insight, memory intact, cooperative - Neurologic Neurologic: CNII-XII intact, moves all extremities - Allied Health Allied health notes reviewed: nursing Plan Activity: advance as tolerated Diet: low salt Special Instructions: restrict fluid intake to (2 L/day) Additional Instructions: Patient is a 50-year-old female with past medical history of COPD, tobacco dependence, hypertension, chronic diastolic heart failure, and obesity who presented with increasing shortness of breath that had initiated the night before. On presentation, the patient was hypoxic to 81% on room air requiring supplemental oxygen. Her labs were remarkable for proBNP of 5966. Due to concerns for possible COPD exacerbation, the patient was initiated on steroids, azithromycin, and Rocephin. Patient was initiated on IV diuretics for heart failure management. TTE was performed and revealed an EF of 55 to 60%, normal LV size, normal LV systolic function, mild concentric LVH, moderate diastolic dysfunction, moderately hypokinetic RV, severely dilated LA. The patient was successfully weaned off of supplemental oxygen and IV diuretics. The patient received breathing treatments during her hospitalization. Patient was also counseled about the importance of tobacco cessation given her COPD, the patient expresses understanding. The patient is medically clear for discharge. She will follow-up with her PCP. Care Plan Goals: Patient is medically clear for discharge. Assessment: Patient is a 50-year-old female with past medical history of COPD, tobacco dependence, hypertension, chronic diastolic heart failure, and obesity who presented with increasing shortness of breath that had initiated the night b efore. On presentation, the patient was hypoxic to 81% on room air requiring supplemental oxygen. Her labs were remarkable for proBNP of 5966. Due to concerns for possible COPD exacerbation, the patient was initiated on steroids, azithromycin, and Rocephin. Patient was initiated on IV diuretics for heart failure management. TTE was performed and revealed an EF of 55 to 60%, normal LV size, normal LV systolic function, mild concentric LVH, moderate diastolic dysfunction, moderately hypokinetic RV, severely dilated LA. The patient was successfully weaned off of supplemental oxygen and IV diuretics. The patient received breathing treatments during her hospitalization. Patient was also counseled about the importance of tobacco cessation given her COPD, the patient expresses understanding. The patient is medically clear for discharge. She will follow-up with her PCP. Follow up with: PRIMARY CAREMD [Primary Care Provider] - 3-5 Days LORI MORAN MD [Staff Physician] - 14 Days Prescriptions: Fluticasone/Salmeterol [Advair Diskus 250-50 mcg] 2 puff IH BID #2 inh Ipratropium (Nf) [Atrovent HFA 17MCG/PUFF] 2 puff IH Q6HR #1 inha predniSONE [Deltasone] 40 mg PO QDAY #3 tablet Albuterol Mdi (or & Nicu Only) [ProAir HFA Inhaler] 2 puff IH QID PRN #1 inh PRN Reason: Shortness Of Breath Budesonide [Pulmicort Flexhaler] 180 mcg IH BID #2 inh
[2021-08-27 12:05] VITALS: BP 128/95
== END 2021-08-27 16:41 | disposition home or self-care (01) | DRG 291 ==
LOC: ED 04:43 → 4A 14:31
PROVIDERS: ADMIT Internal Medicine; ATTEND Student in an Organized Health Care Education/Training Program
DX: I11.0 Hypertensive heart disease with heart failure (principal); J96.01 Acute respiratory failure with hypoxia; J44.1 Chronic obstructive pulmonary disease with (acute) exacerbation; I50.33 Acute on chronic diastolic (congestive) heart failure; G25.81 Restless legs syndrome; F17.200 Nicotine dependence, unspecified, uncomplicated; E66.9 Obesity, unspecified; Z68.30 Body mass index [BMI] 30.0-30.9, adult; I25.2 Old myocardial infarction
CPT/HCPCS: 36415; 71045; 71275; 80048; 80053; 80307; 81001; 83880; 84145; 84443; 85007; 85025; 85027; 85379; 85610; 85730; 93005; 93306; 94640; 94760; 96374; 99285; G0378; C8929; J0696; J1940; Q9967; U0003

== ENCOUNTER 2021-09-28 19:07 | Emergency (ER) | payer MEDICAID ==
[2021-09-28 21:01] VITALS: BP 152/100
--- NOTE | 2021-09-29 02:48 | Emergency Department Report ---
ED Abdominal Pain HPI - General Chief Complaint: Abdominal Pain Stated Complaint: CAN'T USE THE BATHROOM Time Seen by Provider: 09/29/21 01:59 Source: patient Mode of arrival: Ambulatory Limitations: No Limitations - History of Present Illness Initial Comments: Patient 50-year-old female who presents for nominal bloating and constipation for 3 days. Patient denies fevers or chills there is no nausea or vomiting. Symptoms are exacerbated by movement and palpation. Symptoms are relieved by nothing tried. Patient endorses prior to arrival to ED tonight she had not had a bowel movement for 2 days. Bowel movement today in the ED is small firm rabbit pellet-like. Patient denies a history of bowel obstructio. MD Complaint: other (Constipation) - Related Data Previous Rx's Medication Instructions Recorded Last Taken Type amLODIPine 10 mg PO DAILY 30 Days #30 tab 07/03/21 Unknown Rx lisinopriL [Zestril TAB] 40 mg PO QDAY 30 Days #30 tab 07/03/21 Unknown Rx Gabapentin 100 mg PO BID 30 Days #60 capsule 07/10/21 Unknown Rx OLANzapine [ZyPREXA] 5 mg PO QHS 30 Days #30 tablet 07/10/21 Unknown Rx Albuterol Mdi (or & Nicu Only) 2 puff IH QID PRN #1 inh 08/27/21 Unknown Rx [ProAir HFA Inhaler] Budesonide [Pulmicort Flexhaler] 180 mcg IH BID #2 inh 08/27/21 Unknown Rx Fluticasone/Salmeterol [Advair 2 puff IH BID #2 inh 08/27/21 Unknown Rx Diskus 250-50 mcg] Ipratropium (Nf) [Atrovent HFA 2 puff IH Q6HR #1 inha 08/27/21 Unknown Rx 17MCG/PUFF] predniSONE [Deltasone] 40 mg PO QDAY #3 tablet 08/27/21 Unknown Rx bisacodyL [Dulcolax suppos] 10 mg PA ONCE PRN #5 supp.rect 09/29/21 Unknown Rx polyethylene glycoL 3350 [Miralax 17 gm PO BID #14 packet 09/29/21 Unknown Rx 3350] Allergies Allergy/AdvReac Type Severity Reaction Status Date / Time No Known Allergies Allergy Verified 08/02/21 19:54 ED Review of Systems ROS: Stated complaint: CAN'T USE THE BATHROOM Other details as noted in HPI Constitutional: denies: chills, fever Eyes: denies: eye pain, eye discharge, vision change ENT: denies: ear pain, throat pain Respiratory: denies: cough, shortness of breath, wheezing Cardiovascular: denies: chest pain, palpitations Endocrine: no symptoms reported Gastrointestinal: abdominal pain, constipation. denies: nausea, vomiting Genitourinary: denies: urgency, dysuria, frequency, hematuria, discharge, dyspareunia Musculoskeletal: back pain. denies: joint swelling, arthralgia Skin: denies: rash, lesions Neurological: denies: headache, weakness, paresthesias, vertigo Psychiatric: denies: anxiety, depression Hematological/Lymphatic: denies: easy bleeding, easy bruising ED Past Medical Hx - Past Medical History Hx Hypertension: Yes Hx Heart Attack/AMI: Yes Hx Psychiatric Treatment: Yes Hx COPD: Yes Hx HIV: No - Surgical History Hx Open Heart Surgery: Yes - Social History Smoking Status: Current Every Day Smoker - Medications Home Medications: Home Medications Medication Instructions Recorded Confirmed Last Taken Type amLODIPine 10 mg PO DAILY 30 Days #30 tab 07/03/21 Unknown Rx lisinopriL [Zestril TAB] 40 mg PO QDAY 30 Days #30 tab 07/03/21 Unknown Rx Gabapentin 100 mg PO BID 30 Days #60 capsule 07/10/21 Unknown Rx OLANzapine [ZyPREXA] 5 mg PO QHS 30 Days #30 tablet 07/10/21 Unknown Rx Albuterol Mdi (or & Nicu Only) 2 puff IH QID PRN #1 inh 08/27/21 Unknown Rx [ProAir HFA Inhaler] Budesonide [Pulmicort Flexhaler] 180 mcg IH BID #2 inh 08/27/21 Unknown Rx Fluticasone/Salmeterol [Advair 2 puff IH BID #2 inh 08/27/21 Unknown Rx Diskus 250-50 mcg] Ipratropium (Nf) [Atrovent HFA 2 puff IH Q6HR #1 inha 08/27/21 Unknown Rx 17MCG/PUFF] predniSONE [Deltasone] 40 mg PO QDAY #3 tablet 08/27/21 Unknown Rx bisacodyL [Dulcolax suppos] 10 mg PA ONCE PRN #5 supp.rect 09/29/21 Unknown Rx polyethylene glycoL 3350 [Miralax 17 gm PO BID #14 packet 09/29/21 Unknown Rx 3350] ED Physical Exam - General Limitations: No Limitations General appearance: alert, in no apparent distress - Head Head exam: Present: normocephalic, normal inspection - Eye Eye exam: Present: normal appearance, EOMI Pupils: Present: normal accommodation - ENT ENT exam: Present: normal exam, normal orophraynx, mucous membranes moist - Neck Neck exam: Present: normal inspection, tenderness, full ROM, lymphadenopathy. Absent: meningismus, thyromegaly - Respiratory Respiratory exam: Present: normal lung sounds bilaterally, chest wall tenderness. Absent: respiratory distress, wheezes, stridor - Cardiovascular Cardiovascular Exam: Present: regular rate, normal rhythm, normal heart sounds. Absent: systolic murmur, diastolic murmur, rubs, gallop - GI/Abdominal GI/Abdominal exam: Present: soft, normal bowel sounds, mass. Absent: distended, tenderness, guarding, rebound, rigid, hernia - Rectal Rectal exam: Present: deferred - External exam: Present: other Speculum exam: Present: erythema Bi-manual exam: Present: normal bi-manual exam ED Course Vital Signs 09/28/21 20:58 Temperature 98.6 F Pulse Rate 99 H Respiratory 18 Rate Blood Pressure 152/100 O2 Sat by Pulse 97 Oximetry ED Medical Decision Making - Radiology Data Radiology results: report reviewed, image reviewed ABDOMEN 2 VIEWS INDICATION / CLINICAL INFORMATION: constipation. COMPARISON: None available. FINDINGS: TUBES / LINES: None. BOWEL GAS PATTERN: No significant abnormality. FREE AIR / EXTRALUMINAL GAS: None seen. ADDITIONAL FINDINGS: Cholecystectomy clips right upper quadrant. Cardiac valvuloplasty and PFO closure device CHEST: Visualized chest shows no significant abnormality. IMPRESSION: 1. No acute findings. Signer Name: Edgar Xie MD Signed: 09/29/2021 3:35 AM Workstation Name: [id number] Transcribed By: MOR Dictated By: Edgar Xie MD Electronically Authenticated By: Edgar Xie MD Signed Date/Time: 09/29/21334 DD/ 3 TD/TT: Print - Medical Decision Making Patient advises symptoms improved after bowel movement in ED. Plan DC to home, MiraLAX, Dulcolax suppositories. Hydrate as directed. Follow-up with your primary care doctor in 2 to 3 days. Patient verbalizes agreement and understanding with discharge plan. Patient DC'd home in stable condition at this time. Critical care attestation.: If time is entered above; I have spent that time in minutes in the direct care o f this critically ill patient, excluding procedure time. ED Disposition Clinical Impression: Constipation Qualifiers: Constipation type: unspecified constipation type Qualified Code(s): K59.00 - Constipation, unspecified Disposition: HOME / SELF CARE / HOMELESS Is pt being admited?: No Does the pt Need Aspirin: No Condition: Stable Instructions: Abdominal Pain (ED), Constipation, Adult Additional Instructions: Take medications as prescribed, hydrate as directed. Follow-up with primary care doctor in 2 to 3 days, return to emergency department should symptoms worsen. Unable to tolerate food by mouth. Prescriptions: bisacodyL [Dulcolax suppos] 10 mg PA ONCE PRN #5 supp.rect PRN Reason: Constipation polyethylene glycoL 3350 [Miralax 3350] 17 gm PO BID #14 packet Referrals: DAGMAR BASS MD [Staff Physician] - 3-5 Days Forms: Work/School Release Form(ED) Time of Disposition: 04:34
--- NOTE | 2021-09-29 03:39 | XRay Report ---
ABDOMEN 2 VIEWS INDICATION / CLINICAL INFORMATION: constipation. COMPARISON: None available. FINDINGS: TUBES / LINES: None. BOWEL GAS PATTERN: No significant abnormality. FREE AIR / EXTRALUMINAL GAS: None seen. ADDITIONAL FINDINGS: Cholecystectomy clips right upper quadrant. Cardiac valvuloplasty and PFO closur e device CHEST: Visualized chest shows no significant abnormality. IMPRESSION: 1. No acute findings. Signer Name: Edgar Xie MD Signed: 09/29/2021 3:35 AM Workstation Name: [id number]
== END 2021-09-29 05:30 | disposition home or self-care (01) ==
LOC: ED 19:07
DX: K59.00 Constipation, unspecified (principal); I10 Essential (primary) hypertension; J44.9 Chronic obstructive pulmonary disease, unspecified; Z98.890 Other specified postprocedural states; F17.290 Nicotine dependence, other tobacco product, uncomplicated
CPT/HCPCS: 74018; 99283

== ENCOUNTER 2021-10-05 16:06 | Emergency (ER) | payer MEDICAID | END 2021-10-06 13:40 | disposition left against medical advice (07) | LOC: ED 16:06 | DX: R52 Pain, unspecified (principal); Z53.21 Procedure and treatment not carried out due to patient leaving prior to being seen by health care provider ==

== ENCOUNTER 2021-11-12 14:20 | Emergency (ER) | payer MEDICAID ==
--- NOTE | 2021-11-12 14:42 | Emergency Department Report ---
Blank Doc - Documentation Documentation: 50-year-old female that presents with right leg pain and swelling. Denies any injuries or trauma. 1- This is a initial triage assessment/medical screening only. Full assessment and work-up will be completed once the patient is in proper hospital gown, ED bed and in a private room setting. This initial assessment/diagnostic orders/clinical plan/ treatment(s) is/are subject to change based on pt's health status, clinical progression and re-assessment by fellow clinical providers in the ED. Further treatment and workup at subsequent clinical providers discretion. Patient/guardians urged not to elope from ED as their condition may be serious if not clinically assessed and managed. 2-labs 3-doppler US The patient was evaluated in the emergency department for symptoms described in the history of present illness. He/she was evaluated in the context of the global COVID-19 pandemic, which necessitated consideration that the patient might be at risk for infection with the virus that causes COVID-19. Institutional protocols and algorithms that pertain to the evaluation of patients at risk for COVID-19 are in a state of rapid change based on information released by regulatory bodies including the CDC and federal and state organizations. These policies and algorithms were followed during the patient's care in the emergency department. Please note that these policies, procedures and recommendations changed on a rapid basis.
[2021-11-12 15:37] LABS: Calcium 9.1 mg/dL (8.4-10.2)
[2021-11-12 15:41] LABS: Basophils % (Auto) 0.2 % (0.0-1.8); Hemoglobin 12.4 gm/dl (10.1-14.3); Lymphocytes # (Auto) 1.1 K/mm3 (1.2-5.4); Lymphocytes % (Auto) 8.5 % (13.4-35.0); Mean Corpuscular HGB Conc 33 % (30-34); Mean Corpuscular Volume 71 fl (79-97); Monocytes # (Auto) 1.1 K/mm3 (0.0-0.8); Monocytes % (Auto) 9.1 % (0.0-7.3); Platelet Count 211 K/mm3 (140-440); Red Blood Count 5.33 M/mm3 (3.65-5.03)
--- NOTE | 2021-11-12 16:36 | Vascular Lab Report ---
DUPLEX DOPPLER LOWER EXTREMITY VEINS, RIGHT INDICATION / CLINICAL INFORMATION: right leg pain and swelling. TECHNIQUE: Duplex doppler imaging was performed through the veins of the right lower extremity using venous comp ression and other maneuvers. COMPARISON: None available. FINDINGS: RIGHT COMMON FEMORAL VEIN: Negative. RIGHT FEMORAL VEIN: Negative. RIGHT POPLITEAL VEIN: Negative. RIGHT CALF VEINS: Negative. ADDITIONAL FINDINGS: Right popliteal cyst measures 3.6 x 0.7 x 3.0 cm IMPRESSION: 1. No sonographic evidence for DVT in the right lower extremity. 2. 3 cm right popliteal cyst Signer Name: Edgar Xie MD Signed: 11/12/2021 4:32 PM Workstation Name: [id number]
[2021-11-12] MEDS ORDERED: COLCHICINE 0.6 MG TAB PO ONE (18:31)
[2021-11-12] MEDS ORDERED: ACETAMINOPHEN W/CODEINE 300-30 MG TAB PO ONE (18:31)
[2021-11-12] MEDS ORDERED: predniSONE 20 MG TAB PO ONE (18:31)
--- NOTE | 2021-11-12 19:04 | Emergency Department Report ---
ED Extremity Problem HPI - General Chief complaint: Extremity Problem,Nontraumatic Stated complaint: FOOT SWOLLEN Time Seen by Provider: 11/12/21 14:35 Source: patient Mode of arrival: Ambulatory Limitations: No Limitations - History of Present Illness Initial comments: 50-year-old white female with a past medical history of hypertension and CAD presents to the emergency room for evaluation of right foot pain and swelling. She states that she woke up with the symptoms and denies any trauma or injury. She states that pain is 4 out of 10 if you do not touch it but if you touch your she bears weight pain increases to 10 out of 10. She denies chest pain, shortness of breath, and hemoptysis. She states that she has not taken any medication for her symptoms. MD Complaint: extremity pain, extremity swelling -: Sudden, This morning Location: right, lower extremity History of Same: No -: No myalgia, No arthralgia, No fever, No associated dyspnea, No associated chest pain Radiation: none Severity scale (0 -10): 4 Quality: aching Consistency: constant Worsens with: weight bearing, palpation Associated Symptoms: denies: chest pain, shortness of breath, fever, myalgias, arthralgias, rash - Related Data Previous Rx's Medication Instructions Recorded Last Taken Type amLODIPine 10 mg PO DAILY 30 Days #30 tab 07/03/21 Unknown Rx lisinopriL [Zestril TAB] 40 mg PO QDAY 30 Days #30 tab 07/03/21 Unknown Rx Gabapentin 100 mg PO BID 30 Days #60 capsule 07/10/21 Unknown Rx OLANzapine [ZyPREXA] 5 mg PO QHS 30 Days #30 tablet 07/10/21 Unknown Rx Albuterol Mdi (or & Nicu Only) 2 puff IH QID PRN #1 inh 08/27/21 Unknown Rx [ProAir HFA Inhaler] Budesonide [Pulmicort Flexhaler] 180 mcg IH BID #2 inh 08/27/21 Unknown Rx Fluticasone/Salmeterol [Advair 2 puff IH BID #2 inh 08/27/21 Unknown Rx Diskus 250-50 mcg] Ipratropium (Nf) [Atrovent HFA 2 puff IH Q6HR #1 inha 08/27/21 Unknown Rx 17MCG/PUFF] predniSONE [Deltasone] 40 mg PO QDAY #3 tablet 08/27/21 Unknown Rx bisacodyL [Dulcolax suppos] 10 mg MI ONCE PRN #5 supp.rect 09/29/21 Unknown Rx polyethylene glycoL 3350 [Miralax 17 gm PO BID #14 packet 09/29/21 Unknown Rx 3350] Indomethacin [Indocin] 25 mg PO Q8H PRN #30 cap 11/12/21 Unknown Rx predniSONE [Deltasone] 50 mg PO QDAY 5 Days #5 tab 11/12/21 Unknown Rx Allergies Allergy/AdvReac Type Severity Reaction Status Date / Time No Known Allergies Allergy Verified 08/02/21 19:54 ED Review of Systems ROS: Stated complaint: FOOT SWOLLEN Other details as noted in HPI Comment: All other systems reviewed and negative Constitutional: denies: chills, fever Eyes: denies: eye discharge, vision change ENT: denies: congestion Respiratory: denies: cough, shortness of breath, SOB with exertion, SOB at rest, stridor, wheezing Cardiovascular: denies: chest pain, palpitations Gastrointestinal: denies: abdominal pain, nausea, vomiting Genitourinary: denies: urgency, dysuria, frequency Musculoskeletal: denies: back pain Skin: denies: rash, lesions Neurological: denies: headache, weakness ED Past Medical Hx - Past Medical History Hx Hypertension: Yes Hx Heart Attack/AMI: Yes Hx Psychiatric Treatment: Yes Hx COPD: Yes Hx HIV: No - Surgical History Hx Open Heart Surgery: Yes - Social History Smoking Status: Never Smoker - Medications Home Medications: Home Medications Medication Instructions Recorded Confirmed Last Taken Type amLODIPine 10 mg PO DAILY 30 Days #30 tab 07/03/21 Unknown Rx lisinopriL [Zestril TAB] 40 mg PO QDAY 30 Days #30 tab 07/03/21 Unknown Rx Gabapentin 100 mg PO BID 30 Days #60 capsule 07/10/21 Unknown Rx OLANzapine [ZyPREXA] 5 mg PO QHS 30 Days #30 tablet 07/10/21 Unknown Rx Albuterol Mdi (or & Nicu Only) 2 puff IH QID PRN #1 inh 08/27/21 Unknown Rx [ProAir HFA Inhaler] Budesonide [Pulmicort Flexhaler] 180 mcg IH BID #2 inh 08/27/21 Unknown Rx Fluticasone/Salmeterol [Advair 2 puff IH BID #2 inh 08/27/21 Unknown Rx Diskus 250-50 mcg] Ipratropium (Nf) [Atrovent HFA 2 puff IH Q6HR #1 inha 08/27/21 Unknown Rx 17MCG/PUFF] predniSONE [Deltasone] 40 mg PO QDAY #3 tablet 08/27/21 Unknown Rx bisacodyL [Dulcolax suppos] 10 mg MI ONCE PRN #5 supp.rect 09/29/21 Unknown Rx polyethylene glycoL 3350 [Miralax 17 gm PO BID #14 packet 09/29/21 Unknown Rx 3350] Indomethacin [Indocin] 25 mg PO Q8H PRN #30 cap 11/12/21 Unknown Rx predniSONE [Deltasone] 50 mg PO QDAY 5 Days #5 tab 11/12/21 Unknown Rx ED Physical Exam - General Limitations: No Limitations General appearance: alert, in no apparent distress - Head Head exam: Present: atraumatic, normocephalic - Eye Eye exam: Present: normal appearance. Absent: conjunctival injection, periorbital swelling, periorbital tenderness - Neck Neck exam: Present: normal inspection, full ROM. Absent: tenderness, lymphadenopathy - Respiratory Respiratory exam: Present: normal lung sounds bilaterally. Absent: respiratory distress, wheezes, rales, rhonchi, stridor, chest wall tenderness - Cardiovascular Cardiovascular Exam: Present: regular rate, normal heart sounds - GI/Abdominal GI/Abdominal exam: Present: soft, normal bowel sounds. Absent: distended, tenderness, guarding, rebound, rigid - Expanded Lower Extremity Exam Right Foot/Toe exam: Present: tenderness, swelling, erythema. Absent: normal inspection (Right foot near great toe area warm to touch and erythematous), full ROM, abrasion, laceration, ecchymosis, deformity, crepidus, dislocation, puncture wound, calcaneal tenderness, tenderness at base of 5th metatarsal, nail avulsion, subungual hematoma Neuro vascular tendon exam: Present: no vascular compromise. Absent: pulse deficit, abnormal cap refill, motor deficit, sensory deficit, extremity cold to touch, pallor Gait: Positive: observed and limited by pain - Back Exam Back exam: Present: normal inspection. Absent: CVA tenderness (R), CVA tenderness (L) - Neurological Exam Neurological exam: Present: alert, oriented X3 - Psychiatric Psychiatric exam: Present: normal affect, normal mood - Skin Skin exam: Present: warm, dry, intact, normal color ED Course Vital Signs 11/12/21 14:34 Temperature 98.7 F Pulse Rate 90 Respiratory 14 Rate Blood Pressure 156/96 O2 Sat by Pulse 96 Oximetry ED Medical Decision Making - Lab Data Result diagrams: 11/12/21 15:00 11/12/21 15:00 - Radiology Data Radiology results: report reviewed, image reviewed Right lower extremity venous Doppler ultrasound: FINDINGS: RIGHT COMMON FEMORAL VEIN: Negative. RIGHT FEMORAL VEIN: Negative. RIGHT POPLITEAL VEIN: Negative. RIGHT CALF VEINS: Negative. ADDITIONAL FINDINGS: Right popliteal cyst measures 3.6 x 0.7 x 3.0 cm IMPRESSION: 1. No sonographic evidence for DVT in the right lower extremity. 2. 3 cm right popliteal cyst - Medical Decision Making 50-year-old white female with a past medical history of hypertension and CAD presents to the emergency room for evaluation of right foot pain and swelling. She states that she woke up with the symptoms and denies any trauma or injury. She states that pain is 4 out of 10 if you do not touch it but if you touch your she bears weight pain increases to 10 out of 10. She denies chest pain, shortness of breath, and hemoptysis. She states that she has not taken any medication for her symptoms. Venous Doppler ultrasound negative for DVT. Elevated uric acid level. Patient noted to have slightly elevated creatinine level at 1.6. Patient will be treated with one-time dose of colchicine 1.2 mg and discharged home with 5-day course of prednisone and indomethacin to use as directed. She is advised to increase intake of 9 caffeinated fluids and follow-up with her primary care provider for recheck of her creatinine level within the next month. She is advised to return to the emergency department for any concerning symptoms. She verbalizes understanding of and agreement with plan of care. Critical care attestation.: If time is entered above; I have spent that time in minutes in the direct care of this critically ill patient, excluding procedure time. ED Disposition Clinical Impression: Gout attack Qualifiers: Gout site: foot Gout etiology: unspecified cause Laterality: right Qualified Code(s): M10.9 - Gout, unspecified Disposition: HOME / SELF CARE / HOMELESS Is pt being admited?: No Does the pt Need Aspirin: No Condition: Stable Instructions: Low-Purine Eating Plan Additional Instructions: Take medications as prescribed. You had a slightly elevated kidney function numbers on your labs, you should increase your intake of noncaffeinated fluids over the next few days and follow-up with your primary care doctor for repeat creatinine level within the next month. Return to the emergency department as needed. Prescriptions: predniSONE [Deltasone] 50 mg PO QDAY 5 Days #5 tab Indomethacin [Indocin] 25 mg PO Q8H PRN #30 cap PRN Reason: Pain, Moderate (4-6) Referrals: LORI MORAN MD [Staff Physician] - 3-5 Days Time of Disposition: 19:16
[2021-11-12 20:21] VITALS: BP 146/76
== END 2021-11-12 20:23 | disposition home or self-care (01) ==
LOC: ED 14:20
DX: M10.9 Gout, unspecified (principal); I10 Essential (primary) hypertension; I21.9 Acute myocardial infarction, unspecified; J44.1 Chronic obstructive pulmonary disease with (acute) exacerbation; Z13.30 Encounter for screening examination for mental health and behavioral disorders, unspecified; Z79.899 Other long term (current) drug therapy
CPT/HCPCS: 36415; 80053; 84550; 85025; 99284

== ENCOUNTER 2021-12-11 17:04 | Emergency (ER) | payer MEDICAID ==
[2021-12-12 01:08] LABS: Color,Urine Colorless (Yellow)
[2021-12-12 01:21] LABS: HCG Qualitative,Urine Negative (Negative)
[2021-12-12 01:22] LABS: Bacteria,Urine 1+ /HPF (Negative)
[2021-12-12 01:32] LABS: WBC,Urine < 1.0 /HPF (0.0-6.0)
--- NOTE | 2021-12-12 01:53 | Emergency Department Report ---
ED Female HPI - General Chief complaint: Urogenital-Female Stated complaint: LOWER BODY PAIN Source: patient Mode of arrival: Ambulatory Limitations: No Limitations - History of Present Illness Initial comments: Patient is a 50-year-old female with a history of hypertension, coronary artery disease s/p ND, COPD and asthma as well as anxiety and depression who presents to the ED with complaint of acute onset persistent intermittent suprapubic pressure, urinary frequency and urgency and vaginal discharge as well as dysuria for the last 2 months. Patient states that the symptoms are worsened in the last 5 days especially with urination or whenever she has a bowel movement. Patient denies fever, chills, nausea and vomiting, diarrhea, dizziness, syncope, chest pain and shortness of breath, abdominal pain, vaginal bleeding, cough or low back pain. MD Complaint: vaginal discharge, dysuria, other (urinary urgency and frequency) -: Gradual, month(s) (2) Location: labia, other (vaginal) Radiation: non-radiating Severity: moderate Severity scale (0 -10): 4 Quality: aching Consistency: constant Improves with: none Worsens with: urination Are you Now?: No Associated Symptoms: denies other symptoms, vaginal discharge, dysuria. denies: vaginal bleeding, abdominal pain, headaches, loss of appetite, hematuria, rash, seizure, shortness of breath, syncope - Related Data Sexually active: No Previous Rx's Medication Instructions Recorded Last Taken Type amLODIPine 10 mg PO DAILY 30 Days #30 tab 07/03/21 Unknown Rx lisinopriL [Zestril TAB] 40 mg PO QDAY 30 Days #30 tab 07/03/21 Unknown Rx Gabapentin 100 mg PO BID 30 Days #60 capsule 07/10/21 Unknown Rx OLANzapine [ZyPREXA] 5 mg PO QHS 30 Days #30 tablet 07/10/21 Unknown Rx Albuterol Mdi (or & Nicu Only) 2 puff IH QID PRN #1 inh 08/27/21 Unknown Rx [ProAir HFA Inhaler] Budesonide [Pulmicort Flexhaler] 180 mcg IH BID #2 inh 08/27/21 Unknown Rx Fluticasone/Salmeterol [Advair 2 puff IH BID #2 inh 08/27/21 Unknown Rx Diskus 250-50 mcg] Ipratropium (Nf) [Atrovent HFA 2 puff IH Q6HR #1 inha 08/27/21 Unknown Rx 17MCG/PUFF] predniSONE [Deltasone] 40 mg PO QDAY #3 tablet 08/27/21 Unknown Rx bisacodyL [Dulcolax suppos] 10 mg ID ONCE PRN #5 supp.rect 09/29/21 Unknown Rx polyethylene glycoL 3350 [Miralax 17 gm PO BID #14 packet 09/29/21 Unknown Rx 3350] Indomethacin [Indocin] 25 mg PO Q8H PRN #30 cap 11/12/21 Unknown Rx predniSONE [Deltasone] 50 mg PO QDAY 5 Days #5 tab 11/12/21 Unknown Rx Ibuprofen [Motrin] 600 mg PO Q8H PRN #30 tablet 12/12/21 Unknown Rx cephALEXin [Keflex] 500 mg PO Q8HR #30 cap 12/12/21 Unknown Rx metroNIDAZOLE [Flagyl] 500 mg PO Q12HR #14 tab 12/12/21 Unknown Rx Allergies Allergy/AdvReac Type Severity Reaction Status Date / Time No Known Allergies Allergy Verified 08/02/21 19:54 ED Review of Systems ROS: Stated complaint: LOWER BODY PAIN Other details as noted in HPI Constitutional: denies: chills, fever Eyes: denies: eye pain, eye discharge, vision change ENT: denies: ear pain, throat pain Respiratory: denies: cough, shortness of breath, wheezing Cardiovascular: denies: chest pain, palpitations Endocrine: no symptoms reported Gastrointestinal: denies: abdominal pain, nausea, diarrhea Genitourinary: urgency, dysuria, frequency, discharge. denies: hematuria Musculoskeletal: denies: back pain, joint swelling, arthralgia Skin: denies: rash, lesions Neurological: denies: headache, weakness, paresthesias Psychiatric: denies: anxiety, depression Hematological/Lymphatic: denies: easy bleeding, easy bruising ED Past Medical Hx - Past Medical History Hx Hypertension: Yes Hx Heart Attack/AMI: Yes Hx Psychiatric Treatment: Yes Hx COPD: Yes Hx HIV: No - Surgical History Hx Open Heart Surgery: Yes - Social History Smoking Status: Never Smoker - Medications Home Medications: Home Medications Medication Instructions Recorded Confirmed Last Taken Type amLODIPine 10 mg PO DAILY 30 Days #30 tab 07/03/21 Unknown Rx lisinopriL [Zestril TAB] 40 mg PO QDAY 30 Days #30 tab 07/03/21 Unknown Rx Gabapentin 100 mg PO BID 30 Days #60 capsule 07/10/21 Unknown Rx OLANzapine [ZyPREXA] 5 mg PO QHS 30 Days #30 tablet 07/10/21 Unknown Rx Albuterol Mdi (or & Nicu Only) 2 puff IH QID PRN #1 inh 08/27/21 Unknown Rx [ProAir HFA Inhaler] Budesonide [Pulmicort Flexhaler] 180 mcg IH BID #2 inh 08/27/21 Unknown Rx Fluticasone/Salmeterol [Advair 2 puff IH BID #2 inh 08/27/21 Unknown Rx Diskus 250-50 mcg] Ipratropium (Nf) [Atrovent HFA 2 puff IH Q6HR #1 inha 08/27/21 Unknown Rx 17MCG/PUFF] predniSONE [Deltasone] 40 mg PO QDAY #3 tablet 08/27/21 Unknown Rx bisacodyL [Dulcolax suppos] 10 mg ID ONCE PRN #5 supp.rect 09/29/21 Unknown Rx polyethylene glycoL 3350 [Miralax 17 gm PO BID #14 packet 09/29/21 Unknown Rx 3350] Indomethacin [Indocin] 25 mg PO Q8H PRN #30 cap 11/12/21 Unknown Rx predniSONE [Deltasone] 50 mg PO QDAY 5 Days #5 tab 11/12/21 Unknown Rx Ibuprofen [Motrin] 600 mg PO Q8H PRN #30 tablet 12/12/21 Unknown Rx cephALEXin [Keflex] 500 mg PO Q8HR #30 cap 12/12/21 Unknown Rx metroNIDAZOLE [Flagyl] 500 mg PO Q12HR #14 tab 12/12/21 Unknown Rx ED Physical Exam - General Limitations: No Limitations General appearance: alert, in no apparent distress - Head Head exam: Present: atraumatic, normocephalic, normal inspection - Eye Eye exam: Present: normal appearance, PERRL, EOMI Pupils: Present: normal accommodation - ENT ENT exam: Present: normal exam, normal orophraynx, mucous membranes moist, TM's normal bilaterally, normal external ear exam - Neck Neck exam: Present: normal inspection, full ROM. Absent: tenderness - Respiratory Respiratory exam: Present: normal lung sounds bilaterally. Absent: respiratory distress, wheezes, rales, rhonchi, chest wall tenderness, accessory muscle use, decreased breath sounds, prolonged expiratory - Cardiovascular Cardiovascular Exam: Present: regular rate, normal rhythm, normal heart sounds. Absent: systolic murmur, diastolic murmur, rubs, gallop - GI/Abdominal GI/Abdominal exam: Present: soft, normal bowel sounds. Absent: tenderness, guarding, rebound, hyperactive bowel sounds, hypoactive bowel sounds, organomegaly, bruit - Extremities Exam Extremities exam: Present: normal inspection, full ROM, normal capillary refill. Absent: tenderness, pedal edema, joint swelling - Back Exam Back exam: Present: normal inspection, full ROM. Absent: tenderness, CVA tenderness (R), CVA tenderness (L), muscle spasm, paraspinal tenderness, vertebral tenderness - Neurological Exam Neurological exam: Present: alert, oriented X3, CN II-XII intact, normal gait, reflexes normal - Psychiatric Psychiatric exam: Present: normal affect, normal mood - Skin Skin exam: Present: warm, dry, intact, normal color. Absent: rash ED Course Vital Signs 12/11/21 12/11/21 21:11 23:50 Temperature 98.6 F 98.3 F Pulse Rate 102 H 98 H Respiratory 18 18 Rate Blood Pressure 189/110 Blood Pressure 165/103 [Left] O2 Sat by Pulse 98 97 Oximetry ED Medical Decision Making - Medical Decision Making This is a 50-year-old female with a history of hypertension, coronary artery disease s/p ND, COPD and asthma as well as anxiety and depression who presents to the ED with complaint of acute onset persistent intermittent suprapubic pressure, urinary frequency and urgency and vaginal discharge as well as dysuria for the last 2 months. Patient states that the symptoms are worsened in the last 5 days especially with urination or whenever she has a bowel movement. In the ED, patient is alert and oriented x3 and is not in any distress. Urinalysis bacteriuria and wet prep test was positive for Gardnerella vaginalis. Patient was therefore discharged home on medications and advised to follow-up with MARKETING DEVELOPMENT MANAGER physician in 7 to 10 days for reevaluation or return to the ED immediately if symptoms get worse. - Differential Diagnosis UTI; bacterial vaginosis; trichomonas; STD; Brittany vaginitis Critical care attestation.: If time is entered above; I have spent that time in minutes in the direct care of this critically ill patient, excluding procedure time. ED Disposition Clinical Impression: Bacterial vaginosis, UTI (urinary tract infection) Disposition: 01 HOME / SELF CARE / HOMELESS Is pt being admited?: No Does the pt Need Aspirin: No Condition: Stable Instructions: Bacterial Vaginosis (ED), Bacterial Vaginosis, [id number], Urinary Tract Infection, Adult, [id number], Vaginitis, [id number] Additional Instructions: Take medication with food, drink plenty of fluids, follow-up with your primary care physician in 7 to 10 days for reevaluation. Return to the ED immediately if symptoms get worse Prescriptions: metroNIDAZOLE [Flagyl] 500 mg PO Q12HR #14 tab cephALEXin [Keflex] 500 mg PO Q8HR #30 cap Ibuprofen [Motrin] 600 mg PO Q8H PRN #30 tablet PRN Reason: Pain Referrals: LORI MORAN MD [Primary Care Provider] - 3-5 Days Forms: [facility] Treatment and Prevention Time of Disposition: 01:54 Print Language: NIGERIAN
[2021-12-12 02:27] VITALS: BP 152/102
== END 2021-12-12 02:27 | disposition home or self-care (01) ==
LOC: ED 17:04
DX: N77.1 Vaginitis, vulvitis and vulvovaginitis in diseases classified elsewhere (principal); N39.0 Urinary tract infection, site not specified
CPT/HCPCS: 81001; 81025; 87210; 99283

== ENCOUNTER 2021-12-19 16:57 | Emergency (ER) | payer MEDICAID ==
[2021-12-19] MEDS ORDERED: hydrALAZINE 20 MG/1 ML INJ IV ONE (18:32)
--- NOTE | 2021-12-19 18:39 | Emergency Department Report ---
ED General Adult HPI - General Chief complaint: High BP Stated complaint: ELEVATED BP Time Seen by Provider: 12/19/21 18:39 Source: EMS Mode of arrival: Stretcher Limitations: No Limitations - History of Present Illness Initial comments: Sangeeta is a 50-year-old female history of hypertension, CHF, asthma who presents emergency department complaint of shortness of breath. She states her symptoms started a couple days ago. Patient states she is currently at [place].. She states she has been angry hollering people pushing the wall. She states that she does have an inhaler nebulizer for asthma but states she has not been able to use it because air has been a malfunction of it. - Related Data Previous Rx's Medication Instructions Recorded Last Taken Type Gabapentin 100 mg PO BID 30 Days #60 capsule 07/10/21 Unknown Rx OLANzapine [ZyPREXA] 5 mg PO QHS 30 Days #30 tablet 07/10/21 Unknown Rx Budesonide [Pulmicort Flexhaler] 180 mcg IH BID #2 inh 08/27/21 Unknown Rx Fluticasone/Salmeterol [Advair 2 puff IH BID #2 inh 08/27/21 Unknown Rx Diskus 250-50 mcg] Ipratropium (Nf) [Atrovent HFA 2 puff IH Q6HR #1 inha 08/27/21 Unknown Rx 17MCG/PUFF] bisacodyL [Dulcolax suppos] 10 mg DC ONCE PRN #5 supp.rect 09/29/21 Unknown Rx polyethylene glycoL 3350 [Miralax 17 gm PO BID #14 packet 09/29/21 Unknown Rx 3350] Indomethacin [Indocin] 25 mg PO Q8H PRN #30 cap 11/12/21 Unknown Rx predniSONE [Deltasone] 50 mg PO QDAY 5 Days #5 tab 11/12/21 Unknown Rx Ibuprofen [Motrin] 600 mg PO Q8H PRN #30 tablet 12/12/21 Unknown Rx cephALEXin [Keflex] 500 mg PO Q8HR #30 cap 12/12/21 Unknown Rx metroNIDAZOLE [Flagyl] 500 mg PO Q12HR #14 tab 12/12/21 Unknown Rx Albuterol Mdi (or & Nicu Only) 2 puff IH QID PRN #1 inh 12/19/21 Unknown Rx [ProAir HFA Inhaler] amLODIPine 10 mg PO DAILY 30 Days #30 tab 08/30/22 Unknown Rx lisinopriL [Zestril TAB] 40 mg PO QDAY 30 Days #30 tab 12/19/21 Unknown Rx predniSONE [Deltasone] 40 mg PO QDAY #3 tablet 12/19/21 Unknown Rx Allergies Allergy/AdvReac Type Severity Reaction Status Date / Time No Known Allergies Allergy Verified 12/19/21 17:16 ED Review of Systems ROS: Stated complaint: ELEVATED BP Other details as noted in HPI ED Past Medical Hx - Past Medical History Hx Hypertension: Yes Hx Heart Attack/AMI: Yes Hx Psychiatric Treatment: Yes Hx COPD: Yes Hx HIV: No - Surgical History Hx Open Heart Surgery: Yes - Social History Smoking Status: Never Smoker - Medications Home Medications: Home Medications Medication Instructions Recorded Confirmed Last Taken Type Gabapentin 100 mg PO BID 30 Days #60 capsule 07/10/21 Unknown Rx OLANzapine [ZyPREXA] 5 mg PO QHS 30 Days #30 tablet 07/10/21 Unknown Rx Budesonide [Pulmicort Flexhaler] 180 mcg IH BID #2 inh 08/27/21 Unknown Rx Fluticasone/Salmeterol [Advair 2 puff IH BID #2 inh 08/27/21 Unknown Rx Diskus 250-50 mcg] Ipratropium (Nf) [Atrovent HFA 2 puff IH Q6HR #1 inha 08/27/21 Unknown Rx 17MCG/PUFF] bisacodyL [Dulcolax suppos] 10 mg DC ONCE PRN #5 supp.rect 09/29/21 Unknown Rx polyethylene glycoL 3350 [Miralax 17 gm PO BID #14 packet 09/29/21 Unknown Rx 3350] Indomethacin [Indocin] 25 mg PO Q8H PRN #30 cap 11/12/21 Unknown Rx predniSONE [Deltasone] 50 mg PO QDAY 5 Days #5 tab 11/12/21 Unknown Rx Ibuprofen [Motrin] 600 mg PO Q8H PRN #30 tablet 12/12/21 Unknown Rx cephALEXin [Keflex] 500 mg PO Q8HR #30 cap 12/12/21 Unknown Rx metroNIDAZOLE [Flagyl] 500 mg PO Q12HR #14 tab 12/12/21 Unknown Rx Albuterol Mdi (or & Nicu Only) 2 puff IH QID PRN #1 inh 12/19/21 Unknown Rx [ProAir HFA Inhaler] amLODIPine 10 mg PO DAILY 30 Days #30 tab 12/19/21 Unknown Rx lisinopriL [Zestril TAB] 40 mg PO QDAY 30 Days #30 tab 12/19/21 Unknown Rx predniSONE [Deltasone] 40 mg PO QDAY #3 tablet 12/19/21 Unknown Rx ED Physical Exam - General Limitations: No Limitations ED Course Vital Signs 12/19/21 12/19/21 12/19/21 16:57 19:58 20:01 Temperature 98.7 F 97.0 F L Pulse Rate 105 H 98 H Pulse Rate [ Posterior Bilateral Throughout] Respiratory 18 Rate Respiratory Rate [Posterior Bilateral Throughout] Blood Pressure Blood Pressure 190/112 [Right] O2 Sat by Pulse 99 94 Oximetry 12/19/21 12/19/21 20:09 21:45 Temperature Pulse Rate 98 H Pulse Rate [ 107 H Posterior Bilateral Throughout] Respiratory 22 Rate Respiratory 18 Rate [Posterior Bilateral Throughout] Blood Pressure 199/100 Blood Pressure 199/100 [Right] O2 Sat by Pulse 94 Oximetry - Reevaluation(s) Reevaluation #1: 12/19/21 23:30 Patient reports she feels improved. She has been ambulatory without significant distress. Patient does have some evidence of pulmonary edema on CTA however her oxygen levels have remained normal. Given this we will start patient on neli ly IV Lasix, refill any blood pressure medicines and her albuterol. Patient should follow-up with pulmonary, cardiology and primary care. ED Medical Decision Making - Lab Data Result diagrams: 12/19/21 18:44 12/19/21 18:44 Critical care attestation.: If time is entered above; I have spent that time in minutes in the direct care of this critically ill patient, excluding procedure time. ED Disposition Clinical Impression: Dyspnea, Acute exacerbation of chronic obstructive pulmonary disease (COPD), Acute exacerbation of CHF (congestive heart failure) Disposition: 01 HOME / SELF CARE / HOMELESS Is pt being admited?: No Does the pt Need Aspirin: No Condition: Stable Instructions: Heart Failure, Self Care, Asthma, Adult, [id number], Chronic Obstructive Pulmonary Disease (ED) Prescriptions: amLODIPine 10 mg PO DAILY 30 Days #30 tab predniSONE [Deltasone] 40 mg PO QDAY #3 tablet Albuterol Mdi (or & Nicu Only) [ProAir HFA Inhaler] 2 puff IH QID PRN #1 inh PRN Reason: Shortness Of Breath lisinopriL [Zestril TAB] 40 mg PO QDAY 30 Days #30 tab Referrals: HERMAN BOOTH MD [Staff Physician] - 3-5 Days PRIMARY CARE, [Primary Care Provider] - 3-5 Days WALTER ACKERMAN MD [Staff Physician] - 3-5 Days ARTURO FERNANDES MD [Staff Physician] - 3-5 Days
[2021-12-19 19:14] LABS: Basophils # (Auto) 0.1 K/mm3 (0.0-0.1); Basophils % (Auto) 0.7 % (0.0-1.8); Eosinophils % (Auto) 0.1 % (0.0-4.3); Hematocrit 35.6 % (30.3-42.9); Hemoglobin 11.8 gm/dl (10.1-14.3); Lymphocytes % (Auto) 11.3 % (13.4-35.0); Mean Corpuscular HGB Conc 33 % (30-34); Mean Corpuscular Volume 73 fl (79-97); Monocytes # (Auto) 0.7 K/mm3 (0.0-0.8); Monocytes % (Auto) 7.5 % (0.0-7.3); Platelet Count 206 K/mm3 (140-440); Red Cell Distribution Width 18.9 % (13.2-15.2)
[2021-12-19 19:25] LABS: Alanine Aminotransferase 15 units/L (7-56); Albumin 3.7 g/dL (3.9-5); BUN/Creatinine Ratio 15; Blood Urea Nitrogen 16 mg/dL (7-17); Calcium 8.2 mg/dL (8.4-10.2); Hemolysis Index 12
[2021-12-19 19:34] LABS: Bilirubin,Direct < 0.2 mg/dL (0-0.2)
[2021-12-19] MEDS ORDERED: FUROSEMIDE 40 MG/4 ML INJ IV ONE (19:56)
[2021-12-19] MEDS ORDERED: ALBUTEROL 2.5 MG/3 ML NEBU IH ONE (19:56)
[2021-12-19] MEDS ORDERED: MAGNESIUM SULFATE 2 GM/50 ML BAG IV ONE (19:56)
[2021-12-19] MEDS ORDERED: MORPHINE 4 MG/1 ML INJ IV ONE (19:56)
[2021-12-19 20:40] LABS: Bacteria,Urine 1+ /HPF (Negative); WBC,Urine < 1.0 /HPF (0.0-6.0)
--- NOTE | 2021-12-19 20:40 | XRay Report ---
CHEST 1 VIEW 12/19/2021 8:08 PM INDICATION / CLINICAL INFORMATION: dyspnea. COMPARISON: 08/25/2021 FINDINGS: SUPPORT DEVICES: None. HEART / MEDIASTINUM: Prior sternotomy with valve surgery. Mild cardiomegaly. LUNGS / PLEURA: No acute pulmonary or pleural findings. There is mild pleural thickening at the left costophrenic angle. COPD changes are noted again. ADDITIONAL FINDINGS: No significant additional findings. IMPRESSION: 1. No acute findings. Signer Name: Thanh Schwartz MD Signed: 12/19/2021 8:36 PM Workstation Name: [id number]
[2021-12-19 20:49] LABS: Amphetamine Screen,Urine Negative; Benzodiazepines Screen,Urine Negative; Cannabinoid Screen,Urine Negative; Cocaine Screen,Urine Negative; Methadone Screen,Urine Negative; Opiate Screen,Urine Negative
[2021-12-19 21:02] LABS: Color,Urine Colorless (Yellow)
--- NOTE | 2021-12-19 22:48 | Cat Scan Report ---
CTA CHEST WITH IV CONTRAST INDICATION: chest pain; tachycardia/sob 91ml of [id number] . TECHNIQUE: Axial CT images were obtained through the chest after injection of 91 mL Omnipaque 350 IV contrast. 3 plane MIP reconstructions were produced. All CT scans at this location are performed using CT dose r eduction for ALARA by means of automated exposure control. COMPARISON: None available. FINDINGS: PULMONARY ARTERIES: No pulmonary emboli. AORTA AND ARTERIES: No acute abnormality. MEDIASTINUM: Heart is borderline enlarged and there is evidence of cardiac valvuloplasty. LUNGS: Emph ysema with evidence of mild interstitial edema. There is a small left pleural effusion coronary arter y calcification: Mild. UPPER ABDOMEN: No acute findings. BONES: No significant osseous abnormality. IMPRESSION: 1. No CT evidence for pulmonary embolism. 2. Mild emphysema with trace interstitial edema and small left pleural effusion. Signer Name: Lokesh Baron MD Signed: 12/19/2021 10:44 PM Workstation Name: [email or web address]
[2021-12-20 01:36] VITALS: BP 155/80
--- NOTE | 2021-12-20 18:10 | Electrocardiograph Report ---
[facility] Test Date: 2021-12-19 Test Time: 19:51:02 Pat Name: SILAS HOLLIDAY Department: Room: Gender: F Customer Success Manager: : 1970 Requested By: ALYSSA HOGUE Order Number: [id number] Reading MD: Clark Lema Measurements Intervals Spencer Rate: 100 P: 61 MT: 147 QRS: 61 QRSD: 87 T: 57 QT: 358 QTc: 464 Interpretive Statements Sinus tachycardia Ventricular premature complex Consider left ventricular hypertrophy Compared to ECG 08/26/2021 07:40:47 Ventricular premature complex(es) now present Electronically Signed On 12-20-2021 18:09:57 EDT by Clark Lema
== END 2021-12-20 01:33 | disposition home or self-care (01) ==
LOC: ED 16:57
DX: J44.1 Chronic obstructive pulmonary disease with (acute) exacerbation (principal); I11.0 Hypertensive heart disease with heart failure; I50.9 Heart failure, unspecified; Z79.899 Other long term (current) drug therapy
CPT/HCPCS: 36415; 71045; 71275; 80048; 80076; 80307; 81001; 83735; 83880; 84484; 85025; 93005; 94640; 96365; 96375; 99285; J0360; J1940; J2270; J3475; Q9967; 94644